=== PATIENT | male | born 1940 | race Caucasian/White ===

== ENCOUNTER 2025-01-04 15:50 | Inpatient (IN) | payer OTHER ==
[~2025-01-04] VITALS: Ht 175.3 cm; Wt 68.9 kg
[2025-01-04 16:38] VITALS: PULSE 65; RESP 22; O2SAT 98
--- NOTE | 2025-01-04 17:05 | DVH ---
CHEST RADIOGRAPH Indication: gen weak Technique: Single frontal view of the chest was obtained COMPARISON: None FINDINGS: Lines and Tubes: Left chest wall pacemaker Lungs: Mild congestion Pleura: Small left pleural effusion No pneumothorax. Cardiomediastinal contours: Cardiomegaly Bones: Unremarkable IMPRESSION: Mild fluid overload
[2025-01-04] MEDS: cefTRIAXone 2GM/50ML D5W 50 ML IV ONE (17:12)
[2025-01-04 17:18] LABS: Urine Bacteria FEW /hpf (None Seen); Urine Blood 1+ /uL (Negative); Urine Budding Yeast FEW /hpf (None Seen); Urine Clarity Ex.Turbid (Clear); Urine Color Light-Brown (Yellow); Urine Protein, UAD 1+ (Negative); Urine Specific Gravity 1.015 (1.001-1.035); Urine Squamous Epithelial Cell None Seen /hpf (<5); Urine Urobilinogen Normal (Negative); Urine WBC 1596 /HPF (0-3); Urine WBC Clumps PRESENT /hpf (None Seen); Urine pH 6.5 (5.0-9.0)
--- NOTE | 2025-01-04 17:25 | ED.PDOC ---
History of Present Illness HPI Comments 84Y M with PMHx HTN, BPH, and possibly DM presents to ED for chief complaint general weakness x2days. Pt states he was discharged from SNF last week and has been unable to care for himself. Pt states he is unable to ambulate. Pt denies all pain but presents with bruising to left dorsal hand. Pt states he recently had a fall. Pt denies chest pain, SOB, and all urinary symptoms. No other symptoms reported. Chief Complaint: General Weakness Time Seen by MD: 16:55 Reviewed Notes: Nurses Notes, Women'S Studies Lecturer Notes, Medications, Allergies Allergies: Coded Allergies: NO KNOWN ALLERGIES (Unverified , 01/04/25) Information Source: Patient, Emergency Med Personnel Mode of Arrival: EMS Severity: Moderate Timing: Days Duration: Since onset Prehospital treatment: None Past Medical History PAST MEDICAL HISTORY: DM, HTN Surgical History: Denies all surgeries Family History Family History: Unknown Social History Smoker: Non-Smoker Alcohol: Denies ETOH Use Drugs: Denies Drug Use Lives In: Home Constitutional: reports: weakness; denies: chills, diaphoresis, fatigue, fever, malaise, sweats, others EENTM: denies: blurred vision, double vision, ear bleeding, ear discharge, ear drainage, ear pain, ear ringing, eye pain, eye redness, hearing loss, mouth pain, mouth swelling, nasal discharge, nose bleeding, nose congestion, nose pain, photophobia, tearing, throat pain, throat swelling, voice changes, others Respiratory: denies: cough, hemoptysis, orthopnea, SOB at rest, shortness of breath, SOB with excertion, stridor, wheezing, others Cardiovascular: denies: chest pain, dizzy spells, diaphoresis, Dyspnea on exertion, edema, irregular heart beat, left arm pain, lightheadedness, palpitations, PND, syncope, others Gastrointestinal: denies: abdomen distended, abdominal pain, blood streaked bowels, constipated, diarrhea, dysphagia, difficulty swallowing, hematemesis, melena, nausea, poor appetite, poor fluid intake, rectal bleeding, rectal pain, vomiting, others Genitourinary: denies: burning, dysuria, flank pain, frequency, hematuria, inc ontinence, penile discharge, penile sore, pain, testicle pain, testicle swelling, urgency, others Neurological: denies: dizziness, fainting, headache, left sided numbness, left sided weakness, numbness, paresthesia, pre-existing deficit, right sided numbness, right sided weakness, seizure, speech problems, tingling, tremors, weakness, others Musculoskeletal: denies: back pain, gout, joint pain, joint swelling, muscle pain, muscle stiffness, neck pain, others Integumetry: reports: bruises (lt dorsal hand); denies: change in color, change in hair/nails, dryness, laceration, lesions, lumps, rash, wounds, others Allergic/Immunocompromised: denies: Difficulty Healing, Frequent Infections, Hives, Itching, others Hematologic/Lymphatic: denies: anemia, blood clots, easy bleeding, easy bruising, swollen glands, others Endocrine: denies: excessive hunger, excessive sweating, excessive thirst, excessive urination, flushing, intolerance to cold, intolerance to heat, unexplained weight gain, unexplained weight loss, others Psychiatric: denies: anxiety, bipolar disorder, depression, hopeless, panic dis order, schizophrenia, sleepless, suicidal, others All Other Systems: Reviewed and Negative Physical Exam General Appearance: No Apparent Distress HEENT: Other (Pupils symmetric. Moist mucous membranes) Neck: Full Range of Motion, Normal Inspection Respiratory: Lungs Clear, No Accessory Muscle Use, No Respiratory Distress, Normal Breath Sounds Cardiovascular: No Edema, No JVD, Regular Rate/Rhythm Breast Exam: Deferred Gastrointestinal: Non Tender, Soft Genitalia: Other (Cloudy/purulent urine in Simms catheter) Pelvic: Deferred Rectal: Deferred Extremities: Normal range of motion, No pedal edema, Tender, Other (Soft tissue tenderness and bruising on the dorsum of the left hand) Neurologic: Alert, Normal Affect, Normal Mood, Other (Moves all extremities. No gross focal deficit.) Cerebellar Function: NOT DONE Reflexes: NOT DONE Skin: Dry, Normal Color, Warm Lymphatic: NOT DONE Was a procedure done? Was a procedure done?: No Differential Dx Considerations may include: UTI, electrolyte imbalance, dehydration/hypovolemia, sepsis, pneumonia, hand contusion/fracture/dislocation, arrhythmia, NC, among others X-Ray, Labs, Meds, VS Vital Signs Date Time Temp Pulse Resp B/P (MAP) Pulse Ox O2 Delivery O2 Flow Rate FiO2 01/04/25 22:00 65 17 100/49 (66) 98 01/04/25 20:30 63 18 98 Nasal Cannula* 2 28 01/04/25 20:00 65 01/04/25 20:00 98.0 65 17 96/50 (65) 100 98.0 01/04/25 18:00 65 16 93/44 (60) 98 01/04/25 16:38 65 22 98 Nasal Cannula* 2 28 01/04/25 16:37 97.8 65 19 101/51 (68) 98 97.8 01/04/25 16:24 97.8 86 18 98/68 (78) 94 01/04/25 15:50 74 Lab Test 01/04/25 19:38 01/04/25 18:29 01/04/25 16:33 Range/Units Troponin I High Sensitivity 3 L 3 L </=54 ng/L White Blood Count 10.0 4.4-10.8 10^3/uL Red Blood Count 4.38 L 4.5-5.90 10^6/uL Hemoglobin 13.9 13.5-17.5 g/dL Hematocrit 41.2 41.0-53.0 % Mean Corpuscular Volume 94.0 80.0-100.0 fL Mean Corpuscular Hemoglobin 31.7 28.0-32.0 pg Mean Corpuscular Hemoglobin Concent 33.7 32.0-36.0 g/dL Red Cell Distribution Width 14.0 11.8-14.3 % Platelet Count 147 140-450 10^3/uL Mean Platelet Volume 7.6 6.9-10.8 fL Neutrophils (%) (Auto) 74.6 37.0-80.0 % Lymphocytes (%) (Auto) 14.3 10.0-50.0 % Monocytes (%) (Auto) 8.9 0.0-12.0 % Eosinophils (%) (Auto) 1.9 0.0-7.0 % Basophils (%) (Auto) 0.3 0.0-2.0 % Neutrophils # (Auto) 7.5 1.6-8.6 10 ^3/uL Lymphocytes # (Auto) 1.4 0.4-5.4 10 ^3/uL Monocytes # (Auto) 0.9 0-1.3 10 ^3/uL Eosinophils # (Auto) 0.2 0-0.8 10 ^3/uL Basophils # (Auto) 0 0-0.2 10 ^3/uL Nucleated Red Blood Cells 0.1 % Sodium Level 137 136-145 mmol/L Potassium Level 4.3 3.5-5.1 mmol/L Chloride Level 104 98-107 mmol/L Carbon Dioxide Level 25 20-31 mmol/L Anion Gap 8 5-15 Blood Urea Nitrogen 36 H 9-23 mg/dL Creatinine 1.49 H 0.700-1.30 mg/dL Glomerular Filtration Rate Calc 45 >90 mL/min BUN/Creatinine Ratio 24.2 H 10.0-20.0 Serum Glucose 145 H 74-106 mg/dL Lactic Acid Level 1.5 0.4-2.0 mmol/L Calcium Level 9.4 8.7-10.4 mg/dL Total Bilirubin 0.5 0.2-1.0 mg/dL Aspartate Amino Transferase (AST) 9 L 13-40 U/L Alanine Aminotransferase (ALT) 16 7-40 U/L Alkaline Phosphatase 124 H 46-116 U/L B-Type Natriuretic Peptide 51.42 0-100 pg/mL Total Protein 6.0 5.7-8.2 g/dL Albumin 3.6 3.2-4.8 g/dL Urine Color Light-brown Yellow Urine Clarity Ex.turbid Clear Urine pH 6.5 5.0-9.0 Urine Specific [place] 1.015 1.001-1.035 Urine Protein 1+ H Negative Urine Ketones Negative Negative Urine Blood 1+ H Negative /uL Urine Nitrite Negative Negative Urine Bilirubin Negative Negative Urine Urobilinogen Normal Negative mg/dL Urine Leukocyte Esterase 3+ Negative /uL Urine RBC 34 0 - 3 /hpf Urine WBC Clumps Present None Seen /hpf Urine Microscopic WBC 1596 H 0-3 /HPF Urine Squamous Epithelial Cells None seen <5 /hpf Urine Bacteria Few H None Seen /hpf Urine Yeast (Budding) Few None Seen /hpf Urine Glucose 4+ H Normal mg/dL Current Medications Medications (Trade) Dose Ordered Sig/Willem Route Start Time Stop Time Status Last Admin Ceftriaxone Sodium/Dextrose 50 ml @ 50 mls/hr ONCE ONCE IV 01/04/25 17:15 01/04/25 18:14 DC 01/04/25 17:12 Diagnostic Test (Pha) (Accu-Chek Comfort Curve T) 1 strip ACHS 01/04/25 22:00 01/04/25 22:00 Sodium Chloride 1,000 ml @ 60 mls/hr [id number] IV 01/04/25 22:00 01/04/25 23:04 ORDERING PHYSICIAN: JUDD MORALES MD PROCEDURE(s): CXRP - CHEST PORTABLE REASON: gen weak ORDER NUMBER(s): [id number], ACCESSION NUMBER(s): [id number] CHEST RADIOGRAPH Indication: gen weak Technique: Single frontal view of the chest was obtained COMPARISON: None FINDINGS: Lines and Tubes: Left chest wall pacemaker Lungs: Mild congestion Pleura: Small left pleural effusion No pneumothorax. Cardiomediastinal contours: Cardiomegaly Bones: Unremarkable IMPRESSION: Mild fluid overload RING PHYSICIAN: JUDD MORALES MD PROCEDURE(s): LHAN - L HAND 3V XRAY REASON: trauma ORDER NUMBER(s): [id number], ACCESSION NUMBER(s): [id number] CLINICAL INDICATION: trauma TECHNIQUE: XY L HAND 3V XRAY Comparison: None FINDINGS/IMPRESSION: : There is no evidence of acute fracture or dislocation. Soft tissues are unremarkable. X-Ray, Labs, Meds, VS Comment 84Y M with PMHx HTN, BPH, and possibly DM presents to ED for chief complaint general weakness x2days. Vitals remarkable for BP 101/51 Exam remarkable for cloudy/purulent urine in the Simms and collection bag, soft tissue tenderness and bruising on the dorsum of the left hand Rhythm strip independently interpreted by me: Sinus rhythm, rate 65, no ectopy. Chest x-ray IMPRESSION: Mild fluid overload Left hand x-ray FINDINGS/IMPRESSION: : There is no evidence of acute fracture or dislocation. Soft tissues are unremarkable. CBC unremarkable, metabolic panel remarkable for BUN 36, creatinine 1.69, lactate normal, 2 serial troponins negative, BNP normal, UA abnormal consistent with UTI Patient treated with the following in the ED: Rocephin 1 g IV On re-evaluation, patient is resting comfortably with stable vitals. Plan is to admit the patient for IV antibiotics. Time of 1ST Reevaluation: 17:25 Reevaluation 1ST: Unchanged Patient Education/Counseling: Diagnosis, Treatment Family Education/Counseling: No Family Present Departure 1 Departure Time of Disposition: 19:00 Impression: Primary Impression: Generalized weakness Additional Impression: UTI (urinary tract infection) Qualified Codes: N39.0 - Urinary tract infection, site not specified Disposition: ADMITTED INPATIENT Admit to: Tele Condition: Guarded Critical Care Note Critical Care Time?: No Stability Stability form required: No Heart Score Heart Score: Heart Score Response (Comments) Value History N/A 0 EKG N/A 0 Age N/A 0 Risk Factors N/A 0 Troponin N/A 0 Total 0 I personally scribed for JUDD MORALES MD [facility] on 01/04/25 at 17:25. Electronically submitted by Yashira eGe ([facility]). I personally scribed for JUDD MORALES MD ([place]) on 01/04/25 at 17:29. Electronically submitted by Yashira Gee ([facility]). I personally scribed for JUDD MORALES MD ([email or web address]) on 01/04/25 at 19:19. Electronically submitted by Yashira Gee ([facility]). JUDD MORALES MD Jan 04, 2025 17:25
--- NOTE | 2025-01-04 18:16 | DVH ---
CLINICAL INDICATION: trauma TECHNIQUE: XY L HAND 3V XRAY Comparison: None FINDINGS/IMPRESSION: : There is no evidence of acute fracture or dislocation. Soft tissues are unremarkable.
[2025-01-04 18:53] LABS: Basophils # (auto) 0 10 ^3/uL (0-0.2); Basophils % (auto) 0.3 % (0.0-2.0); Eosinophils # (auto) 0.2 10 ^3/uL (0-0.8); Eosinophils % (auto) 1.9 % (0.0-7.0); Hematocrit 41.2 % (41.0-53.0); Hemoglobin 13.9 g/dL (13.5-17.5); Lymphocytes # (auto) 1.4 10 ^3/uL (0.4-5.4); Lymphocytes % (auto) 14.3 % (10.0-50.0); Mean Corpuscular Hemoglobin 31.7 pg (28.0-32.0); Mean Corpuscular Hgb Conc. 33.7 g/dL (32.0-36.0); Monocytes # (auto) 0.9 10 ^3/uL (0-1.3); Monocytes % (auto) 8.9 % (0.0-12.0); Neutrophils # (auto) 7.5 10 ^3/uL (1.6-8.6); Neutrophils % (auto) 74.6 % (37.0-80.0); Nucleated Red Blood Cells % 0.1 %; Platelet Count (auto) 147 10^3/uL (140-450); Red Blood Cells 4.38 10^6/uL (4.5-5.90)
[2025-01-04 19:10] LABS: Alanine Aminotransferase 16 U/L (7-40); Albumin 3.6 g/dL (3.2-4.8); Anion Gap 8 (5-15); BUN/Creatinine Ratio 24.2 (10.0-20.0); Bilirubin, Total 0.5 mg/dL (0.2-1.0); Calcium 9.4 mg/dL (8.7-10.4); Carbon Dioxide 25 mmol/L (20-31); Chloride 104 mmol/L (98-107); Potassium 4.3 mmol/L (3.5-5.1); Sodium 137 mmol/L (136-145)
[2025-01-04 19:15] LABS: Alkaline Phosphatase 124 U/L (46-116); Aspartate Aminotransferase 9 U/L (13-40); Blood Urea Nitrogen 36 mg/dL (9-23); Glucose 145 mg/dL (74-106)
[2025-01-04 20:30] VITALS: PULSE 63; RESP 18; O2SAT 98
[2025-01-04] MEDS ORDERED: ONDANSETRON HCL 4 MG/2 ML VIAL IV PRN (22:00)
[2025-01-04] MEDS: InsuLIN REG 1unit/0.01ml Soln (100units/ml) SC SCH (22:00)
[2025-01-04] MEDS ORDERED: DEXTROSE (50%) 50ML SYRG IV PRN (22:00)
[2025-01-04] MEDS: ACCU-CHEK COMFORT CURVE STRIP VI SCH (22:00)
[2025-01-04] MEDS ORDERED: NITROGLYCERIN 0.4 MG SL TAB SL PRN (22:00)
[2025-01-04] MEDS ORDERED: MORPHINE SULFATE INJ 2 MG/ml SYRG IV PRN (22:00)
[2025-01-04] MEDS ORDERED: DOCUSATE SOD 100 MG CAP PO PRN (22:00)
--- NOTE | 2025-01-04 22:04 | DVHHP2 ---
History of Present Illness Reason for Visit: Generalized weakness History of Present Illness The patient is a 84-year-old male with past medical history of DM, HLD, and hypertension who presented to [facility] ED with complaint of generalized weakness for the past 2 days. Patient reports he was discharged from SNF last week and has been unable to care for himself, unable to ambulate. Patient present with bruises to the left dorsal hand from recent fall. Patient was seen and evaluated in the ED, laboratory data shows WBC 10.0, platelets 147, sodium 137, potassium 4.3, BUN 36, creatinine 1.49, GFR 45, troponin 3, glucose 145, BNP 51.42, urinalysis positive for urinary tract infection, blood pressure 96/50, heart rate 65, temperature 98.0 F, O2 saturation 99% on oxygen. Left hand x-ray show no evidence of acute fracture or dislocation. Patient was started on IV antibiotic regimen Rocephin, please see medication orders section in the computer. On my assessment, patient denied chest pain, no headache, no dizziness, abdominal pain, no nausea, no vomiting, no fever, no chills. Patient was admitted for further evaluation and medical management. Past Medical History DM, HTN, HLD Past Surgical History Denies all surgeries Family History Reviewed, noncontributory to the management of this case. Past Social History The patient lives at home, denies smoking, alcohol or illicit drugs abuse. Review of Systems Constitutional: Yes: Weakness; No: Fever, Chills, Sweats, Malaise, Other Eyes: No: Pain, Vision change, Conjunctivae inflammation, Eyelid inflammation, Other, Redness ENT: No: Ear pain, Ear discharge, Nose pain, Nose discharge, Nose congestion, Mouth pain, Mouth swelling, Throat pain, Throat swelling, Other Respiratory: No: Cough, Dry, Shortness of breath, SOB with excertion, Wheezing, Hemoptysis, Pleuritic Pain, Sputum, Wheezing, Other Cardiovascular: No: Chest Pain, Palpitations, Orthopnea, Paroxysmal Noc. Dyspnea, Edema, Lt Headedness, Other Gastrointestinal: No: Nausea, Vomiting, Abdominal Pain, Diarrhea, Constipation, Melena, Hematochezia, Other Genitourinary: No Dysuria, No Frequency, No Incontinence, No Hematuria, No Retention, No Other Musculoskeletal: No: other, neck pain, shoulder pain, arm pain, back pain, hand pain, leg pain, foot pain Skin: Other (Left hand bruises); No: Rash, Lesions, Jaundice, Bruising Neurological: No: Weakness, Numbness, Incoordination, Change in speech, Confusion, Seizures, Other Allergies: Coded Allergies: NO KNOWN ALLERGIES (Unverified , 01/04/25) Exam Vital Signs Vital Signs Date Time Temp Pulse Resp B/P (MAP) Pulse Ox O2 Delivery O2 Flow Rate FiO2 01/04/25 20:00 65 01/04/25 20:00 98.0 17 96/50 (65) 100 98.0 01/04/25 16:38 Nasal Cannula* 2 28 General Appearance: Alert, Oriented X3, Cooperative, No acute distress HEENT: Atraumatic, PERRLA, EOMI, Mucous membr. moist/pink Respiratory: Clear to auscultation, Normal air movement Cardiovascular: Regular rate, Normal S1, Normal S2, No murmurs Abdominal: Normal bowel sounds, Soft, No tenderness, No hepatospenomegaly, No masses Extremities: No clubbing, No cyanosis, No edema, Normal pulses, No tenderness/swelling Skin: No rashes, No breakdown, No significant lesion Neuro: Normal speech, Normal tone, Sensation intact, Cranial nerves 3-12 NL, Reflexes 2+, Other (Generalized weakness) Psych/Mental Status: Mental status NL, Mood NL Labs/Xrays Labs Test 01/04/25 19:38 01/04/25 18:29 01/04/25 16:33 Range/Units Troponin I High Sensitivity 3 L </=54 ng/L White Blood Count 10.0 4.4-10.8 10^3/uL Red Blood Count 4.38 L 4.5-5.90 10^6/uL Hemoglobin 13.9 13.5-17.5 g/dL Hematocrit 41.2 41.0-53.0 % Mean Corpuscular Volume 94.0 80.0-100.0 fL Mean Corpuscular Hemoglobin 31.7 28.0-32.0 pg Mean Corpuscular Hemoglobin Concent 33.7 32.0-36.0 g/dL Red Cell Distribution Width 14.0 11.8-14.3 % Platelet Count 147 140-450 10^3/uL Mean Platelet Volume 7.6 6.9-10.8 fL Neutrophils (%) (Auto) 74.6 37.0-80.0 % Lymphocytes (%) (Auto) 14.3 10.0-50.0 % Monocytes (%) (Auto) 8.9 0.0-12.0 % Eosinophils (%) (Auto) 1.9 0.0-7.0 % Basophils (%) (Auto) 0.3 0.0-2.0 % Neutrophils # (Auto) 7.5 1.6-8.6 10 ^3/uL Lymphocytes # (Auto) 1.4 0.4-5.4 10 ^3/uL Monocytes # (Auto) 0.9 0-1.3 10 ^3/uL Eosinophils # (Auto) 0.2 0-0.8 10 ^3/uL Basophils # (Auto) 0 0-0.2 10 ^3/uL Nucleated Red Blood Cells 0.1 % Sodium Level 137 136-145 mmol/L Potassium Level 4.3 3.5-5.1 mmol/L Chloride Level 104 98-107 mmol/L Carbon Dioxide Level 25 20-31 mmol/L Anion Gap 8 5-15 Blood Urea Nitrogen 36 H 9-23 mg/dL Creatinine 1.49 H 0.700-1.30 mg/dL Glomerular Filtration Rate Calc 45 >90 mL/min BUN/Creatinine Ratio 24.2 H 10.0-20.0 Serum Glucose 145 H 74-106 mg/dL Lactic Acid Level 1.5 0.4-2.0 mmol/L Calcium Level 9.4 8.7-10.4 mg/dL Total Bilirubin 0.5 0.2-1.0 mg/dL Aspartate Amino Transferase (AST) 9 L 13-40 U/L Alanine Aminotransferase (ALT) 16 7-40 U/L Alkaline Phosphatase 124 H 46-116 U/L B-Type Natriuretic Peptide 51.42 0-100 pg/mL Total Protein 6.0 5.7-8.2 g/dL Albumin 3.6 3.2-4.8 g/dL Urine Color Light-brown Yellow Urine Clarity Ex.turbid Clear Urine pH 6.5 5.0-9.0 Urine Specific [place] 1.015 1.001-1.035 Urine Protein 1+ H Negative Urine Ketones Negative Negative Urine Blood 1+ H Negative /uL Urine Nitrite Negative Negative Urine Bilirubin Negative Negative Urine Urobilinogen Normal Negative mg/dL Urine Leukocyte Esterase 3+ Negative /uL Urine RBC 34 0 - 3 /hpf Urine WBC Clumps Present None Seen /hpf Urine Microscopic WBC 1596 H 0-3 /HPF Urine Squamous Epithelial Cells None seen <5 /hpf Urine Bacteria Few H None Seen /hpf Urine Yeast (Budding) Few None Seen /hpf Urine Glucose 4+ H Normal mg/dL PATIENT: KEESHA MONK ACCT: [id number] UNIT: [id number] : 1940 LOC: ER ROOM / BED: / AGE / SEX: 84 / M ADM STATUS: REG ER SERVICE 1619 ORDERING PHYSICIAN: JUDD MORALES MD PROCEDURE(s): CXRP - CHEST PORTABLE REASON: gen weak ORDER NUMBER(s): [id number], ACCESSION NUMBER(s): [id number] CHEST RADIOGRAPH Indication: gen weak Technique: Single frontal view of the chest was obtained COMPARISON: None FINDINGS: Lines and Tubes: Left chest wall pacemaker Lungs: Mild congestion Pleura: Small left pleural effusion No pneumothorax. Cardiomediastinal contours: Cardiomegaly Bones: Unremarkable IMPRESSION: Mild fluid overload ORDERING PHYSICIAN: JUDD MORALES MD PROCEDURE(s): LHAN - L HAND 3V XRAY REASON: trauma ORDER NUMBER(s): [id number], ACCESSION NUMBER(s): [id number] CLINICAL INDICATION: trauma TECHNIQUE: XY L HAND 3V XRAY Comparison: None FINDINGS/IMPRESSION: There is no evidence of acute fracture or dislocation. Soft tissues are unremarkable. Assessment/Plan Assessment/Plan Generalized weakness Acute renal injury Urinary tract infection Diabetes mellitus with hyperglycemia Plan 1. Admit to telemetry unit 2. Breathing treatment 3. Pain control management 4. IV antibiotic management 5. Management of fluids and electrolytes 6. Consultation for hospitalist 7. Diagnostic test chest x-ray 8. DVT prophylaxis-on SCDs 9. Repeat labs CBC, CMP in a.m. 10. Home medication reviewed and reconciled 11. Continue with current medical management 12. Treatment plan discussed with patient and RN. Patient verbalized understanding. Plan discussed with: Patient, Other (RN) Problem List: (1) Generalized weakness (2) Acute renal injury (3) UTI (urinary tract infection) (4) Diabetes mellitus with hyperglycemia Date of Service: Jan 04, 2025 Billing Provider: SHAZIA PHELPS DNP Common Visit Codes: [id number] INP/OBS CARE (HIGH) SHAZIA PHELPS DNP Jan 04, 2025 22:04
[2025-01-04] MEDS: SODIUM CHLORIDE 0.9% 1,000 ML IV SCH (23:04)
[2025-01-05 06:43] LABS: Alanine Aminotransferase 14 U/L (7-40); Alkaline Phosphatase 103 U/L (46-116); Anion Gap 8 (5-15); Aspartate Aminotransferase 14 U/L (13-40); BUN/Creatinine Ratio 22.7 (10.0-20.0); Calcium 9.7 mg/dL (8.7-10.4); Carbon Dioxide 25 mmol/L (20-31); Chloride 106 mmol/L (98-107); Glucose 102 mg/dL (74-106); Potassium 4.2 mmol/L (3.5-5.1); Sodium 139 mmol/L (136-145); Total Protein 5.8 g/dL (5.7-8.2)
[2025-01-05 06:44] LABS: Albumin 3.3 g/dL (3.2-4.8); Bilirubin, Total 0.6 mg/dL (0.2-1.0)
[2025-01-05 06:54] LABS: Blood Urea Nitrogen 25 mg/dL (9-23)
[2025-01-05 07:01] LABS: Basophils # (auto) 0 10 ^3/uL (0-0.2); Basophils % (auto) 0.8 % (0.0-2.0); Eosinophils # (auto) 0.2 10 ^3/uL (0-0.8); Eosinophils % (auto) 3.8 % (0.0-7.0); Hematocrit 36.5 % (41.0-53.0); Hemoglobin 12.2 g/dL (13.5-17.5); Lymphocytes # (auto) 1.4 10 ^3/uL (0.4-5.4); Lymphocytes % (auto) 22.2 % (10.0-50.0); Mean Corpuscular Hemoglobin 31.3 pg (28.0-32.0); Mean Corpuscular Hgb Conc. 33.5 g/dL (32.0-36.0); Mean Corpuscular Volume 93.6 fL (80.0-100.0); Monocytes # (auto) 0.6 10 ^3/uL (0-1.3); Monocytes % (auto) 9.5 % (0.0-12.0); Neutrophils % (auto) 63.7 % (37.0-80.0); Nucleated Red Blood Cells % 0.2 %; Platelet Count (auto) 127 10^3/uL (140-450); Red Cell Distribution Width 14.1 % (11.8-14.3); White Blood Cell 6.2 10^3/uL (4.4-10.8)
[2025-01-05 07:38] VITALS: RESP 18
[2025-01-05] MEDS: cefTRIAXone 1GM/50ML D5W 50 ML IV SCH (08:12)
--- NOTE | 2025-01-05 13:21 | DVHPN2 ---
Reviewed: Care Plan, H&P, Labs, Medications, Previous Orders, Radiology Changes from previous H/P or p: No Changes Eyes: No Pain, No Vision change, No Conjunctivae inflammation, No Eyelid inflammation, No Other, No Redness ENT: No Ear pain, No Ear discharge, No Nose pain, No Nose discharge, No Nose congestion, No Mouth pain, No Mouth swelling, No Throat pain, No Throat swelling, No Other Cardiovascular: No Chest Pain, No Palpitations, No Orthopnea, No Paroxysmal Noc. Dyspnea, No Edema, No Lt Headedness, No Other Respiratory: No Cough, No Dry, No Shortness of breath, No SOB with excertion, No Wheezing, No Hemoptysis, No Pleuritic Pain, No Sputum, No Other Gastrointestinal: No Nausea, No Vomiting, No Abdominal Pain, No Diarrhea, No Constipation, No Melena, No Hematochezia, No Other Genitourinary: No Dysuria, No Frequency, No Incontinence, No Hematuria, No Retention, No Other Musculoskeletal: No other, No neck pain, No shoulder pain, No arm pain, No back pain, No hand pain, No leg pain, No foot pain Skin: No Rash, No Lesions, No Jaundice, No Bruising; Other (Left hand bruises) Objective Vitals Vital Signs Date Time Temp Pulse Resp B/P (MAP) Pulse Ox O2 Delivery O2 Flow Rate FiO2 01/05/25 12:00 97.9 65 15 109/56 (73) 99 97.9 01/05/25 07:38 Nasal Cannula* 2 28 Intake/Output Intake and Output 01/05/25 07:00 Intake Total 410 ml Balance 410 ml Intake IV Total 410 ml Medications Current Medications Medications Dose Ordered Sig/Willem Route Start Time Stop Time Status Last Admin Dose Admin Ceftriaxone Sodium 50 ml @ 100 mls/hr DAILY@09 IV 01/05/25 09:00 01/05/25 08:12 100 MLS/HR Diagnostic Test (Pha) 1 strip ACHS 01/04/25 22:00 01/05/25 11:10 1 STRIP Insulin Human Regular ACHS SC 01/04/25 22:00 Dextrose 50 ml UD PRN IV 01/04/25 22:00 Sodium Chloride 1,000 ml @ 60 mls/hr [id number] IV 01/04/25 22:00 01/04/25 23:04 60 MLS/HR Acetaminophen/ Hydrocodone Bitart 1 tab Q4HP PRN PO 01/04/25 22:00 Ondansetron HCl 4 mg Q4HP PRN IV 01/04/25 22:00 Docusate Sodium 100 mg BIDPRN PRN PO 01/04/25 22:00 Acetaminophen 650 mg Q6HP PRN PO 01/04/25 22:00 Nitroglycerin 0.4 mg Q5MINP PRN SL 01/04/25 22:00 Morphine Sulfate 2 mg Q30M PRN IV 01/04/25 22:00 Laboratory Results Laboratory Tests 01/05/25 05:51 Chemistry Test 01/04/25 18:29 01/05/25 05:51 Albumin 3.6 g/dL (3.2-4.8) 3.3 g/dL (3.2-4.8) Calcium Level 9.4 mg/dL (8.7-10.4) 9.7 mg/dL (8.7-10.4) Total Protein 6.0 g/dL (5.7-8.2) 5.8 g/dL (5.7-8.2) Cardiac Markers Test 01/04/25 18:29 B-Type Natriuretic Peptide 51.42 pg/mL (0-100) LFT Test 01/04/25 18:29 01/05/25 05:51 Alanine Aminotransferase (ALT) 16 U/L (7-40) 14 U/L (7-40) Alkaline Phosphatase 124 U/L (46-116) H 103 U/L (46-116) Aspartate Amino Transferase (AST) 9 U/L (13-40) L 14 U/L (13-40) Total Bilirubin 0.5 mg/dL (0.2-1.0) 0.6 mg/dL (0.2-1.0) Urinalysis Test 01/04/25 16:33 Urine Color Light-brown (Yellow) Urine Clarity Ex.turbid (Clear) Urine pH 6.5 (5.0-9.0) Urine Specific [place] 1.015 (1.001-1.035) Urine Protein 1+ (Negative) H Urine Ketones Negative (Negative) Urine Blood 1+ /uL (Negative) H Urine Nitrite Negative (Negative) Urine Bilirubin Negative (Negative) Urine Urobilinogen Normal mg/dL (Negative) Urine Leukocyte Esterase 3+ /uL (Negative) Urine RBC 34 /hpf (0 - 3) Urine WBC Clumps Present /hpf (None Seen) Urine Microscopic WBC 1596 /HPF (0-3) H Urine Squamous Epithelial Cells None seen /hpf (<5) Urine Bacteria Few /hpf (None Seen) H Urine Yeast (Budding) Few /hpf (None Seen) Urine Glucose 4+ mg/dL (Normal) H Labs and/or images reviewed: Labs reviewed by me, Image(s) reviewed by me Assessment/Plan Assessment/Plan Sepsis secondary to urinary tract infection: Blood cultures urine cultures Acute urinary tract infection: Rocephin IV Acute generalized weakness possibly secondary to sepsis Diabetes: Insulin sliding scale Hypertension Hypercholesterolemia Chest x-ray negative Bruise left hand secondary to fall: Left hand x-ray negative Time spent 55 minutes Advanced care planning time 20 minutes Patient is full code Vandana test rapid flu test D-dimer ordered Plan discussed with: Patient Date of Service: Jan 05, 2025 Billing Provider: FAUSTINO SIBLEY MD Common Visit Codes: [id number] INP/OBS CARE(HIGH) Secondary Visit Codes: [id number] CARE PLAN 30 MINUTES FAUSTINO SIBLEY MD Jan 05, 2025 13:21
[2025-01-05 14:51] LABS: COVID19 ANTIGEN SOFIA FIA NEGATIVE (NEGATIVE); Rapid Influenza A Negative (Negative); Rapid Influenza B Negative (Negative)
--- NOTE | 2025-01-05 16:23 | DVH ---
Bilateral lower extremity venous duplex Clinical History: R/O DVT Comparison: None Technique: Duplex Doppler evaluation of the deep venous systems of both lower extremities from the common femora l veins to the popliteal veins including color Doppler and spectral/pulsed waveform analysis was perf ormed. Findings: RIGHT SIDE: The common femoral vein demonstrates appropriate compressibility and waveform variability. There is compressibility/patency of the great saphenous vein at the proximal thigh. The femoral vein demonstrates appropriate compressibility and waveform variability. The deep femoral vein demonstrates appropriate compressibility and waveform variability. The popliteal vein demonstrates appropriate compressibility and waveform variability. There is normal compressibility at the tibioperoneal trunk. LEFT SIDE: The common femoral vein demonstrates appropriate compressibility and waveform variability. There is compressibility/patency of the great saphenous vein at the proximal thigh. The femoral vein demonstrates appropriate compressibility and waveform variability. The deep femoral vein demonstrates appropriate compressibility and waveform variability. The popliteal vein demonstrates appropriate compressibility and waveform variability. There is normal compressibility at the tibioperoneal trunk. Impression: No right or left femoropopliteal venous thrombosis.
[2025-01-05 18:27] VITALS: BP 115/61; PULSE 65; RESP 16; TEMP 97.4; O2SAT 100
[2025-01-05 18:30] VITALS: RESP 18
[2025-01-05 20:00] VITALS: PULSE 65
[2025-01-05 21:00] VITALS: BP 112/57; PULSE 64; RESP 16; TEMP 97.6; O2SAT 100
[2025-01-05] MEDS ORDERED: VANCOMYCIN PER PHARMACY 0 MG IV SCH (23:45)
[2025-01-05] MEDS: VANCOMYCIN 1GM/250ML KIT 250 ML IV ONE (23:56)
[2025-01-05] MEDS: VANCOMYCIN HCL 1000 MG VL ONE (23:59)
[2025-01-06] VITALS (8 sets, daily range): BP systolic 96–121; BP diastolic 49–61; PULSE 64–67; RESP 16–17; TEMP 97.6–98.1; O2SAT 99–100
[2025-01-06] MEDS: IOHEXOL 350 MG/ML 100ML IJ ONE (09:07)
--- NOTE | 2025-01-06 09:38 | DVH ---
CTA CHEST INDICATION: R/O PE TECHNIQUE: Multidetector CTA of the chest was performed of the chest with 100 cc of intravenous contr ast. PULMONARY ANGIOGRAPHY PROTOCOL was utilized using a bolus-tracking technique centered on the jennifer n pulmonary artery. Axial, coronal and sagittal multiplanar and MIP reformats were performed. Radiation Dose Information: CT Dose: CTDI volume is 16 mGy. Dose-length product is 538 mGy*cm The dose indicators for CT are the volume Computed Tomography (CT) Dose Index (CTDIvol) and the Dose Length Product (DLP), and are measured in units of mGy and mGy-cm, respectively. These indicators are not patient dose, but values generated from the CT scanner acquisition factors. The report includes radiation exposure data for exposures received during this examination. Comparison: None Findings: Pulmonary artery: There is no evidence of a pulmonary arterial filling defect to suggest pulmonary e mbolism. The main pulmonary artery demonstrates normal caliber. Lungs/Pleura: There is pleural-parenchymal scarring / thickening with volume loss in the lung bases. There is no focal lung consolidation. There is no suspicious appearing pulmonary nodule or mass. Ther e is no significant pleural effusion. There is no evidence of pneumothorax. Heart/Vascular Structures: Normal heart size. The thoracic aorta demonstrates normal caliber. There is no evidence of pericardial effusion. Lymph Nodes: There is no evidence of thoracic lymphadenopathy. Musculoskeletal: The osseous structures appear demineralized. There are chronic appearing compression deformities of the T11 greater than T12 vertebral bodies. Upper abdomen: Visualized upper abdominal structures appear within normal limits. IMPRESSION: 1. There is no evidence of a pulmonary arterial filling defect to suggest pulmonary embolism. 2. There is pleural-parenchymal scarring/ thickening with volume loss in the lung bases. 3. Chronic appearing deformities of the T11 greater than T12 vertebral bodies. HS:Y
--- NOTE | 2025-01-06 12:12 | DVHPN2 ---
Reviewed: Care Plan, H&P, Labs, Medications, Previous Orders, Radiology Changes from previous H/P or p: No Changes Eyes: No Pain, No Vision change, No Conjunctivae inflammation, No Eyelid inflammation, No Other, No Redness ENT: No Ear pain, No Ear discharge, No Nose pain, No Nose discharge, No Nose congestion, No Mouth pain, No Mouth swelling, No Throat pain, No Throat swelling, No Other Cardiovascular: No Chest Pain, No Palpitations, No Orthopnea, No Paroxysmal Noc. Dyspnea, No Edema, No Lt Headedness, No Other Respiratory: No Cough, No Dry, No Shortness of breath, No SOB with excertion, No Wheezing, No Hemoptysis, No Pleuritic Pain, No Sputum, No Other Gastrointestinal: No Nausea, No Vomiting, No Abdominal Pain, No Diarrhea, No Constipation, No Melena, No Hematochezia, No Other Genitourinary: No Dysuria, No Frequency, No Incontinence, No Hematuria, No Retention, No Other Musculoskeletal: No other, No neck pain, No shoulder pain, No arm pain, No back pain, No hand pain, No leg pain, No foot pain Skin: No Rash, No Lesions, No Jaundice, No Bruising; Other (Left hand bruises) Objective Vitals Vital Signs Date Time Temp Pulse Resp B/P (MAP) Pulse Ox O2 Delivery O2 Flow Rate FiO2 01/06/25 08:54 98.0 65 16 104/49 (67) 99 98.0 01/06/25 08:00 Nasal Cannula* 2 28 Intake/Output Intake and Output 01/06/25 07:00 Intake Total 650 ml Output Total 900 ml Balance -250 ml Intake Oral 0 ml IV Total 650 ml Output Urine Total 900 ml Medications Current Medications Medications Dose Ordered Sig/Willem Route Start Time Stop Time Status Last Admin Dose Admin Ceftriaxone Sodium 50 ml @ 100 mls/hr DAILY@09 IV 01/05/25 09:00 01/06/25 09:52 100 MLS/HR Diagnostic Test (Pha) 1 strip ACHS 01/04/25 22:00 01/06/25 11:30 1 STRIP Insulin Human Regular ACHS SC 01/04/25 22:00 01/06/25 12:04 2 UNITS Dextrose 50 ml UD PRN IV 01/04/25 22:00 Sodium Chloride 1,000 ml @ 60 mls/hr [id number] IV 01/04/25 22:00 01/06/25 07:20 60 MLS/HR Acetaminophen/ Hydrocodone Bitart 1 tab Q4HP PRN PO 01/04/25 22:00 Ondansetron HCl 4 mg Q4HP PRN IV 01/04/25 22:00 Docusate Sodium 100 mg BIDPRN PRN PO 01/04/25 22:00 Acetaminophen 650 mg Q6HP PRN PO 01/04/25 22:00 Nitroglycerin 0.4 mg Q5MINP PRN SL 01/04/25 22:00 Morphine Sulfate 2 mg Q30M PRN IV 01/04/25 22:00 Vancomycin HCl 0 ml @ 0 mls/hr UD IV 01/05/25 23:45 Vancomycin HCl 250 ml @ 250 mls/hr Q18H IV 01/06/25 19:00 Laboratory Results Laboratory Tests 01/05/25 05:51 Coagulation Test 01/05/25 14:15 D-Dimer, Quantitative 2.23 mg/L FEU (0.0-0.49) H Urinalysis Test 01/04/25 16:33 Urine Color Light-brown (Yellow) Urine Clarity Ex.turbid (Clear) Urine pH 6.5 (5.0-9.0) Urine Specific [place] 1.015 (1.001-1.035) Urine Protein 1+ (Negative) H Urine Ketones Negative (Negative) Urine Blood 1+ /uL (Negative) H Urine Nitrite Negative (Negative) Urine Bilirubin Negative (Negative) Urine Urobilinogen Normal mg/dL (Negative) Urine Leukocyte Esterase 3+ /uL (Negative) Urine RBC 34 /hpf (0 - 3) Urine WBC Clumps Present /hpf (None Seen) Urine Microscopic WBC 1596 /HPF (0-3) H Urine Squamous Epithelial Cells None seen /hpf (<5) Urine Bacteria Few /hpf (None Seen) H Urine Yeast (Budding) Few /hpf (None Seen) Urine Glucose 4+ mg/dL (Normal) H Microbiology Microbiology Date/Time Source Procedure Growth Status 01/04/25 18:36 Blood Blood Culture - Preliminary Resulted 01/04/25 16:33 Voided Urine Urine Culture - Preliminary Resulted Labs and/or images reviewed: Labs reviewed by me, Image(s) reviewed by me Assessment/Plan Assessment/Plan Sepsis secondary to urinary tract infection: Blood cultures contaminated, urine cultures mixed Acute urinary tract infection: Rocephin IV Acute generalized weakness possibly secondary to sepsis Diabetes: Insulin sliding scale Hypertension Hypercholesterolemia Chest x-ray negative D-dimer elevated 2.26: DVT ruled out PE ruled out Vandana test negative Flu test neg Bruise left hand secondary to fall: Left hand x-ray negative Time spent 55 minutes Advanced care planning time 20 minutes Patient is full code Plan discussed with: Patient My Orders Orders - FAUSTINO SIBLEY MD Procedure Category Date Status Time Bilat Lower Dvt US 01/05/25 Resulted 15:41 * Wound Consult CONS 01/05/[address] Angio Chest CT 01/06/25 Resulted Contrast 07:00 Date of Service: Jan 06, 2025 Billing Provider: FAUSTINO SIBLEY MD Common Visit Codes: [id number] INP/OBS CARE(HIGH) FAUSTINO SIBLEY MD Jan 06, 2025 12:12
--- NOTE | 2025-01-06 16:18 | ECG ---
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
[2025-01-06] MEDS: VANCOMYCIN 1GM/250ML KIT 250 ML IV SCH (18:59)
[2025-01-07] VITALS (8 sets, daily range): BP systolic 96–115; BP diastolic 50–59; PULSE 65–69; RESP 16–18; TEMP 97.3–98.6; O2SAT 96–99
[2025-01-07] MEDS: ACETAMINOPHEN 325 MG TAB PO PRN (00:51)
--- NOTE | 2025-01-07 13:01 | DVHPN2 ---
Reviewed: Care Plan, H&P, Labs, Medications, Previous Orders, Radiology Changes from previous H/P or p: No Changes Eyes: No Pain, No Vision change, No Conjunctivae inflammation, No Eyelid inflammation, No Other, No Redness ENT: No Ear pain, No Ear discharge, No Nose pain, No Nose discharge, No Nose congestion, No Mouth pain, No Mouth swelling, No Throat pain, No Throat swelling, No Other Cardiovascular: No Chest Pain, No Palpitations, No Orthopnea, No Paroxysmal Noc. Dyspnea, No Edema, No Lt Headedness, No Other Respiratory: No Cough, No Dry, No Shortness of breath, No SOB with excertion, No Wheezing, No Hemoptysis, No Pleuritic Pain, No Sputum, No Other Gastrointestinal: No Nausea, No Vomiting, No Abdominal Pain, No Diarrhea, No Constipation, No Melena, No Hematochezia, No Other Genitourinary: No Dysuria, No Frequency, No Incontinence, No Hematuria, No Retention, No Other Musculoskeletal: No other, No neck pain, No shoulder pain, No arm pain, No back pain, No hand pain, No leg pain, No foot pain Skin: No Rash, No Lesions, No Jaundice, No Bruising; Other (Left hand bruises) Objective Vitals Vital Signs Date Time Temp Pulse Resp B/P (MAP) Pulse Ox O2 Delivery O2 Flow Rate FiO2 01/07/25 08:39 97.8 66 16 104/55 (71) 98 97.8 01/07/25 08:05 Nasal Cannula* 2 28 Intake/Output Intake and Output 01/07/25 07:00 Intake Total 1910 ml Output Total 1250 ml Balance 660 ml Intake Oral 950 ml IV Total 960 ml Output Urine Total 1250 ml Medications Current Medications Medications Dose Ordered Sig/Willem Route Start Time Stop Time Status Last Admin Dose Admin Ceftriaxone Sodium 50 ml @ 100 mls/hr DAILY@09 IV 01/05/25 09:00 01/07/25 09:20 100 MLS/HR Diagnostic Test (Pha) 1 strip ACHS 01/04/25 22:00 01/07/25 11:30 1 STRIP Insulin Human Regular ACHS SC 01/04/25 22:00 01/07/25 12:07 2 UNITS Dextrose 50 ml UD PRN IV 01/04/25 22:00 Sodium Chloride 1,000 ml @ 60 mls/hr [id number] IV 01/04/25 22:00 01/06/25 07:20 60 MLS/HR Acetaminophen/ Hydrocodone Bitart 1 tab Q4HP PRN PO 01/04/25 22:00 Ondansetron HCl 4 mg Q4HP PRN IV 01/04/25 22:00 Docusate Sodium 100 mg BIDPRN PRN PO 01/04/25 22:00 Acetaminophen 650 mg Q6HP PRN PO 01/04/25 22:00 01/07/25 00:51 650 MG Nitroglycerin 0.4 mg Q5MINP PRN SL 01/04/25 22:00 Morphine Sulfate 2 mg Q30M PRN IV 01/04/25 22:00 Vancomycin HCl 0 ml @ 0 mls/hr UD IV 01/05/25 23:45 Vancomycin HCl 250 ml @ 250 mls/hr Q18H IV 01/06/25 19:00 01/06/25 18:59 250 MLS/HR Laboratory Results Laboratory Tests 01/05/25 05:51 Urinalysis Test 01/04/25 16:33 Urine Color Light-brown (Yellow) Urine Clarity Ex.turbid (Clear) Urine pH 6.5 (5.0-9.0) Urine Specific [place] 1.015 (1.001-1.035) Urine Protein 1+ (Negative) H Urine Ketones Negative (Negative) Urine Blood 1+ /uL (Negative) H Urine Nitrite Negative (Negative) Urine Bilirubin Negative (Negative) Urine Urobilinogen Normal mg/dL (Negative) Urine Leukocyte Esterase 3+ /uL (Negative) Urine RBC 34 /hpf (0 - 3) Urine WBC Clumps Present /hpf (None Seen) Urine Microscopic WBC 1596 /HPF (0-3) H Urine Squamous Epithelial Cells None seen /hpf (<5) Urine Bacteria Few /hpf (None Seen) H Urine Yeast (Budding) Few /hpf (None Seen) Urine Glucose 4+ mg/dL (Normal) H Microbiology Microbiology Date/Time Source Procedure Growth Status 01/04/25 18:36 Blood Blood Culture - Final Staphylococcus epidermidis Complete 01/04/25 16:33 Voided Urine Urine Culture - Final Complete Labs and/or images reviewed: Labs reviewed by me, Image(s) reviewed by me Assessment/Plan Assessment/Plan Sepsis secondary to urinary tract infection: Blood cultures contaminated, urine cultures mixed Acute urinary tract infection: Treated with the Rocephin Acute generalized weakness possibly secondary to sepsis Diabetes: Insulin sliding scale Hypertension Hypercholesterolemia Chest x-ray negative D-dimer elevated 2.26: DVT ruled out PE ruled out Vandana test negative Flu test neg Bruise left hand secondary to fall: Left hand x-ray negative Time spent 55 minutes Advanced care planning time 20 minutes Patient is full code Plan discussed with: Patient My Orders Orders - FAUSTINO SIBLEY MD Procedure Category Date Status Time Apply Barrier Cream TRACI 01/06/25 In Process 11:15 * Dietary Consult CONS 01/06/25 Transmitted 14:43 Date of Service: Jan 07, 2025 Billing Provider: FAUSTINO SIBLEY MD Common Visit Codes: [id number] INP/OBS CARE(HIGH) FAUSTINO SIBLEY MD Jan 07, 2025 13:01
[2025-01-07] MEDS ORDERED: CIPR-173 PO (13:02)
--- NOTE | 2025-01-07 13:05 | DVHDS2 ---
Discharge Summary Date of Admission Jan 04, 2025 at 22:00 Date of Discharge: Jan 07, 2025 Admitting Diagnosis Weakness Wounds: None Labs/Diagnostic Data: Laboratory Results Test 01/07/25 11:51 01/05/25 14:15 01/05/25 13:50 01/05/25 05:51 POC Glucose 141 mg/dl (70-106) D-Dimer, Quantitative 2.23 mg/L FEU (0.0-0.49) Influenza Type A Antigen Negative (Negative) Influenza Type B Antigen Negative (Negative) SARS-CoV-2 Antigen (Rapid) Negative (NEGATIVE) White Blood Count 6.2 10^3/uL (4.4-10.8) Red Blood Count 3.90 10^6/uL (4.5-5.90) Hemoglobin 12.2 g/dL (13.5-17.5) Hematocrit 36.5 % (41.0-53.0) Mean Corpuscular Volume 93.6 fL (80.0-100.0) Mean Corpuscular Hemoglobin 31.3 pg (28.0-32.0) Mean Corpuscular Hemoglobin Concent 33.5 g/dL (32.0-36.0) Red Cell Distribution Width 14.1 % (11.8-14.3) Platelet Count 127 10^3/uL (140-450) Mean Platelet Volume 8.2 fL (6.9-10.8) Neutrophils (%) (Auto) 63.7 % (37.0-80.0) Lymphocytes (%) (Auto) 22.2 % (10.0-50.0) Monocytes (%) (Auto) 9.5 % (0.0-12.0) Eosinophils (%) (Auto) 3.8 % (0.0-7.0) Basophils (%) (Auto) 0.8 % (0.0-2.0) Neutrophils # (Auto) 4.0 10 ^3/uL (1.6-8.6) Lymphocytes # (Auto) 1.4 10 ^3/uL (0.4-5.4) Monocytes # (Auto) 0.6 10 ^3/uL (0-1.3) Eosinophils # (Auto) 0.2 10 ^3/uL (0-0.8) Basophils # (Auto) 0 10 ^3/uL (0-0.2) Nucleated Red Blood Cells 0.2 % Sodium Level 139 mmol/L (136-145) Potassium Level 4.2 mmol/L (3.5-5.1) Chloride Level 106 mmol/L (98-107) Carbon Dioxide Level 25 mmol/L (20-31) Anion Gap 8 (5-15) Blood Urea Nitrogen 25 mg/dL (9-23) Creatinine 1.10 mg/dL (0.700-1.30) Glomerular Filtration Rate Calc 65 mL/min (>90) BUN/Creatinine Ratio 22.7 (10.0-20.0) Serum Glucose 102 mg/dL (74-106) Calcium Level 9.7 mg/dL (8.7-10.4) Total Bilirubin 0.6 mg/dL (0.2-1.0) Aspartate Amino Transferase (AST) 14 U/L (13-40) Alanine Aminotransferase (ALT) 14 U/L (7-40) Alkaline Phosphatase 103 U/L (46-116) Total Protein 5.8 g/dL (5.7-8.2) Albumin 3.3 g/dL (3.2-4.8) Test 01/04/25 19:38 01/04/25 18:29 01/04/25 16:33 Troponin I High Sensitivity 3 ng/L (</=54) Lactic Acid Level 1.5 mmol/L (0.4-2.0) B-Type Natriuretic Peptide 51.42 pg/mL (0-100) Urine Color Light-brown (Yellow) Urine Clarity Ex.turbid (Clear) Urine pH 6.5 (5.0-9.0) Urine Specific [place] 1.015 (1.001-1.035) Urine Protein 1+ (Negative) Urine Ketones Negative (Negative) Urine Blood 1+ /uL (Negative) Urine Nitrite Negative (Negative) Urine Bilirubin Negative (Negative) Urine Urobilinogen Normal mg/dL (Negative) Urine Leukocyte Esterase 3+ /uL (Negative) Urine RBC 34 /hpf (0 - 3) Urine WBC Clumps Present /hpf (None Seen) Urine Microscopic WBC 1596 /HPF (0-3) Urine Squamous Epithelial Cells None seen /hpf (<5) Urine Bacteria Few /hpf (None Seen) Urine Yeast (Budding) Few /hpf (None Seen) Urine Glucose 4+ mg/dL (Normal) Other Laboratory Tests 01/05/25 05:51 Brief Hx & Hospital Course: 84-year-old male with a history of hypertension diabetes hypercholesterolemia came in for generalized weakness found to be in sepsis secondary to urinary tract infection treated with Rocephin blood cultures contaminated urine cultures were mixed. Comorbid conditions treated appropriately D-dimer elevated 2.26 PE ruled out DVT ruled out Vandana test negative flu test negative patient has a history of fall he had a bruise in the left hand secondary to fall left hand x- rays negative for any fracture at the time of discharge patient is alert awake oriented x3 stable vital signs. Being discharged home on Cipro for UTI and he will follow up with his primary Dr Consults/Reason for consult None Operations or Procedures CT angiogram Venous ultrasound Condition at Discharge: Fair Final Diagnosis/Problems List Sepsis secondary to urinary tract infection: Blood cultures contaminated, urine cultures mixed Acute urinary tract infection: Treated with the Rocephin Acute generalized weakness possibly secondary to sepsis Diabetes: Insulin sliding scale Hypertension Hypercholesterolemia Chest x-ray negative D-dimer elevated 2.26: DVT ruled out PE ruled out Vandana test negative Flu test neg Bruise left hand secondary to fall: Left hand x-ray negative Discharge Disposition: Home Discharge Instruct/Medications Diet: Regular Activity: Light activity Follow Up/Referral: Follow up with the primary Dr in one week Use medications as prescribed Medications: Cipro Transmitted to pharmacy 39 (Time taken for discharge summary 39 minutes) Discharge Statement: "Patient was advised to return to the ER or call 911 if any headaches, dizziness, shortness of breath, chest pain, abdominal pain, bleeding, fevers, or worsening of medical condition. Patient was counseled about treatment plan, medications, possible side effects, patientverbalized understanding. All questions were answered to the best of my ability. This discharge took greater then 30 minutes in planning, reviewing documentation, counseling the patient, and discussing with other team members." ASSESSMENT ASSESSMENT Assessment Sepsis secondary to urinary tract infection: Blood cultures contaminated, urine cultures mixed Acute urinary tract infection: Treated with the Rocephin Acute generalized weakness possibly secondary to sepsis Diabetes: Insulin sliding scale Hypertension Hypercholesterolemia Chest x-ray negative D-dimer elevated 2.26: DVT ruled out PE ruled out Vandana test negative Flu test neg Bruise left hand secondary to fall: Left hand x-ray negative Date of Service: Jan 07, 2025 Billing Provider: FAUSTINO SIBLEY MD Common Visit Codes: [id number] INP/OBS CARE(HIGH) FAUSTINO SIBLEY MD Jan 07, 2025 13:05
[2025-01-07] MEDS: CIPROFLOXACIN HCL 500 MG TAB PO SCH (22:39)
[2025-01-08] VITALS (8 sets, daily range): BP systolic 95–114; BP diastolic 52–76; PULSE 65–69; RESP 15–17; TEMP 97.9–98.3; O2SAT 90–98
--- NOTE | 2025-01-08 13:09 | DVHPN2 ---
Reviewed: Care Plan, H&P, Labs, Medications, Previous Orders, Radiology Changes from previous H/P or p: No Changes Eyes: No Pain, No Vision change, No Conjunctivae inflammation, No Eyelid inflammation, No Other, No Redness ENT: No Ear pain, No Ear discharge, No Nose pain, No Nose discharge, No Nose congestion, No Mouth pain, No Mouth swelling, No Throat pain, No Throat swelling, No Other Cardiovascular: No Chest Pain, No Palpitations, No Orthopnea, No Paroxysmal Noc. Dyspnea, No Edema, No Lt Headedness, No Other Respiratory: No Cough, No Dry, No Shortness of breath, No SOB with excertion, No Wheezing, No Hemoptysis, No Pleuritic Pain, No Sputum, No Other Gastrointestinal: No Nausea, No Vomiting, No Abdominal Pain, No Diarrhea, No Constipation, No Melena, No Hematochezia, No Other Genitourinary: No Dysuria, No Frequency, No Incontinence, No Hematuria, No Retention, No Other Musculoskeletal: No other, No neck pain, No shoulder pain, No arm pain, No back pain, No hand pain, No leg pain, No foot pain Skin: No Rash, No Lesions, No Jaundice, No Bruising; Other (Left hand bruises) Objective Vitals Vital Signs Date Time Temp Pulse Resp B/P (MAP) Pulse Ox O2 Delivery O2 Flow Rate FiO2 01/08/25 08:17 Nasal Cannula* 2 28 01/08/25 08:15 65 01/08/25 05:22 98.0 17 107/58 (74) 98 98.0 Intake/Output Intake and Output 01/08/25 07:00 Intake Total 4100 ml Output Total 1575 ml Balance 2525 ml Intake Oral 860 ml IV Total 3240 ml Output Urine Total 1575 ml Medications Current Medications Medications Dose Ordered Sig/Willem Route Start Time Stop Time Status Last Admin Dose Admin Ceftriaxone Sodium 50 ml @ 100 mls/hr DAILY@09 IV 01/05/25 09:00 01/08/25 09:07 100 MLS/HR Diagnostic Test (Pha) 1 strip ACHS 01/04/25 22:00 01/08/25 11:35 1 STRIP Insulin Human Regular ACHS SC 01/04/25 22:00 01/08/25 11:42 2 UNITS Dextrose 50 ml UD PRN IV 01/04/25 22:00 Sodium Chloride 1,000 ml @ 60 mls/hr [id number] IV 01/04/25 22:00 01/08/25 09:20 60 MLS/HR Acetaminophen/ Hydrocodone Bitart 1 tab Q4HP PRN PO 01/04/25 22:00 Ondansetron HCl 4 mg Q4HP PRN IV 01/04/25 22:00 Docusate Sodium 100 mg BIDPRN PRN PO 01/04/25 22:00 Acetaminophen 650 mg Q6HP PRN PO 01/04/25 22:00 01/07/25 00:51 650 MG Nitroglycerin 0.4 mg Q5MINP PRN SL 01/04/25 22:00 Morphine Sulfate 2 mg Q30M PRN IV 01/04/25 22:00 Vancomycin HCl 0 ml @ 0 mls/hr UD IV 01/05/25 23:45 Vancomycin HCl 250 ml @ 250 mls/hr Q18H IV 01/06/25 19:00 01/08/25 06:31 250 MLS/HR Ciprofloxacin 500 mg Q12HR PO 01/07/25 22:00 01/08/25 09:08 500 MG Laboratory Results Laboratory Tests 01/05/25 05:51 01/08/25 05:43 Urinalysis Test 01/04/25 16:33 Urine Color Light-brown (Yellow) Urine Clarity Ex.turbid (Clear) Urine pH 6.5 (5.0-9.0) Urine Specific [place] 1.015 (1.001-1.035) Urine Protein 1+ (Negative) H Urine Ketones Negative (Negative) Urine Blood 1+ /uL (Negative) H Urine Nitrite Negative (Negative) Urine Bilirubin Negative (Negative) Urine Urobilinogen Normal mg/dL (Negative) Urine Leukocyte Esterase 3+ /uL (Negative) Urine RBC 34 /hpf (0 - 3) Urine WBC Clumps Present /hpf (None Seen) Urine Microscopic WBC 1596 /HPF (0-3) H Urine Squamous Epithelial Cells None seen /hpf (<5) Urine Bacteria Few /hpf (None Seen) H Urine Yeast (Budding) Few /hpf (None Seen) Urine Glucose 4+ mg/dL (Normal) H Blood Gas Results Test 01/08/25 09:41 Arterial Blood pH 7.440 (7.350-7.450) FiO2 % 21.0 Microbiology Microbiology Date/Time Source Procedure Growth Status 01/04/25 18:36 Blood Blood Culture - Final Staphylococcus epidermidis Complete 01/04/25 16:33 Voided Urine Urine Culture - Final Complete Labs and/or images reviewed: Labs reviewed by me, Image(s) reviewed by me Assessment/Plan Assessment/Plan Sepsis secondary to urinary tract infection: Blood cultures contaminated, urine cultures mixed Acute urinary tract infection: Treated with the Rocephin Acute generalized weakness possibly secondary to sepsis Diabetes: Insulin sliding scale Hypertension Hypercholesterolemia Chest x-ray negative D-dimer elevated 2.26: DVT ruled out PE ruled out Vandana test negative Flu test neg Bruise left hand secondary to fall: Left hand x-ray negative Time spent 55 minutes Advanced care planning time 20 minutes Patient is full code Physical therapy ordered as the patient lives alone at home ABG done today shows patient does not qualify for home oxygen Plan discussed with: Patient My Orders Orders - FAUSTINO SIBLEY MD Procedure Category Date Status Time Abg W/ Co-Ox RT 01/08/25 Logged 08:52 Pt Request For Service PT 01/08/25 Verified 13:07 Date of Service: Jan 08, 2025 Billing Provider: FAUSTINO SIBLEY MD Common Visit Codes: [id number] INP/OBS CARE(HIGH) FAUSTINO SIBLEY MD Jan 08, 2025 13:09
--- NOTE | 2025-01-08 16:18 | MEDREC ---
[facility] Intervention Section I [facility] Intervention: Deescalate AB based on CS (BLOOD CULTURE POSITIVE FOR STAPHYLOCOCCUS EPIDERMIS - POTENTIAL CONTAMINATION - SENSITIVE TO CIPROFLOXACIN - PLEASE CONSIDER D/C VANCOMYCIN), Duplication of therapy (PLEASE CONSIDER D/C CEFTRIAXONE POTENTIAL DUPLICATION OF THERAPY WITH CIPROFLOXACIN) JUVENCIO NOYOLA PHARMACIST Jan 08, 2025 16:18
[2025-01-09] VITALS (8 sets, daily range): BP systolic 94–116; BP diastolic 42–62; PULSE 65–77; RESP 18; TEMP 97.9–98.1; O2SAT 90–93
[2025-01-09 07:35] LABS: Anion Gap 8 (5-15); Carbon Dioxide 24 mmol/L (20-31); Chloride 107 mmol/L (98-107); Potassium 3.6 mmol/L (3.5-5.1); Sodium 139 mmol/L (136-145)
[2025-01-09 07:36] LABS: Calcium 9.9 mg/dL (8.7-10.4)
[2025-01-09 07:41] LABS: BUN/Creatinine Ratio 14.3 (10.0-20.0); Blood Urea Nitrogen 14 mg/dL (9-23); Glucose 99 mg/dL (74-106)
--- NOTE | 2025-01-09 11:57 | DVHPN2 ---
Reviewed: Care Plan, H&P, Labs, Medications, Previous Orders, Radiology Changes from previous H/P or p: No Changes Eyes: No Pain, No Vision change, No Conjunctivae inflammation, No Eyelid inflammation, No Other, No Redness ENT: No Ear pain, No Ear discharge, No Nose pain, No Nose discharge, No Nose congestion, No Mouth pain, No Mouth swelling, No Throat pain, No Throat swelling, No Other Cardiovascular: No Chest Pain, No Palpitations, No Orthopnea, No Paroxysmal Noc. Dyspnea, No Edema, No Lt Headedness, No Other Respiratory: No Cough, No Dry, No Shortness of breath, No SOB with excertion, No Wheezing, No Hemoptysis, No Pleuritic Pain, No Sputum, No Other Gastrointestinal: No Nausea, No Vomiting, No Abdominal Pain, No Diarrhea, No Constipation, No Melena, No Hematochezia, No Other Genitourinary: No Dysuria, No Frequency, No Incontinence, No Hematuria, No Retention, No Other Musculoskeletal: No other, No neck pain, No shoulder pain, No arm pain, No back pain, No hand pain, No leg pain, No foot pain Skin: No Rash, No Lesions, No Jaundice, No Bruising; Other (Left hand bruises) Objective Vitals Vital Signs Date Time Temp Pulse Resp B/P (MAP) Pulse Ox O2 Delivery O2 Flow Rate FiO2 01/09/25 08:09 97.9 68 18 94/50 (65) 93 97.9 01/09/25 08:00 Nasal Cannula* 2 28 Intake/Output Intake and Output 01/09/25 07:00 Intake Total 1485 ml Output Total 350 ml Balance 1135 ml Intake Oral 800 ml IV Total 685 ml Output Urine Total 350 ml Medications Current Medications Medications Dose Ordered Sig/Willem Route Start Time Stop Time Status Last Admin Dose Admin Ceftriaxone Sodium 50 ml @ 100 mls/hr DAILY@09 IV 01/05/25 09:00 01/09/25 09:06 100 MLS/HR Diagnostic Test (Pha) 1 strip ACHS 01/04/25 22:00 01/09/25 11:21 1 STRIP Insulin Human Regular ACHS SC 01/04/25 22:00 01/09/25 11:21 2 UNITS Dextrose 50 ml UD PRN IV 01/04/25 22:00 Sodium Chloride 1,000 ml @ 60 mls/hr [id number] IV 01/04/25 22:00 01/08/25 22:54 60 MLS/HR Acetaminophen/ Hydrocodone Bitart 1 tab Q4HP PRN PO 01/04/25 22:00 Ondansetron HCl 4 mg Q4HP PRN IV 01/04/25 22:00 Docusate Sodium 100 mg BIDPRN PRN PO 01/04/25 22:00 Acetaminophen 650 mg Q6HP PRN PO 01/04/25 22:00 01/07/25 00:51 650 MG Nitroglycerin 0.4 mg Q5MINP PRN SL 01/04/25 22:00 Morphine Sulfate 2 mg Q30M PRN IV 01/04/25 22:00 Vancomycin HCl 0 ml @ 0 mls/hr UD IV 01/05/25 23:45 Vancomycin HCl 250 ml @ 250 mls/hr Q18H IV 01/06/25 19:00 01/09/25 00:32 250 MLS/HR Ciprofloxacin 500 mg Q12HR PO 01/07/25 22:00 01/09/25 09:05 500 MG Laboratory Results Laboratory Tests 01/05/25 05:51 01/09/25 04:56 Chemistry Test 01/09/25 04:56 Calcium Level 9.9 mg/dL (8.7-10.4) Urinalysis Test 01/04/25 16:33 Urine Color Light-brown (Yellow) Urine Clarity Ex.turbid (Clear) Urine pH 6.5 (5.0-9.0) Urine Specific [place] 1.015 (1.001-1.035) Urine Protein 1+ (Negative) H Urine Ketones Negative (Negative) Urine Blood 1+ /uL (Negative) H Urine Nitrite Negative (Negative) Urine Bilirubin Negative (Negative) Urine Urobilinogen Normal mg/dL (Negative) Urine Leukocyte Esterase 3+ /uL (Negative) Urine RBC 34 /hpf (0 - 3) Urine WBC Clumps Present /hpf (None Seen) Urine Microscopic WBC 1596 /HPF (0-3) H Urine Squamous Epithelial Cells None seen /hpf (<5) Urine Bacteria Few /hpf (None Seen) H Urine Yeast (Budding) Few /hpf (None Seen) Urine Glucose 4+ mg/dL (Normal) H Microbiology Microbiology Date/Time Source Procedure Growth Status 01/04/25 18:36 Blood Blood Culture - Final Staphylococcus epidermidis Complete 01/04/25 16:33 Voided Urine Urine Culture - Final Complete Labs and/or images reviewed: Labs reviewed by me, Image(s) reviewed by me Assessment/Plan Assessment/Plan Sepsis secondary to urinary tract infection: Blood cultures contaminated, urine cultures mixed DC vancomycin Acute urinary tract infection: Treated with Rocephin Acute generalized weakness possibly secondary to sepsis Diabetes: Insulin sliding scale Hypertension Hypercholesterolemia Chest x-ray negative D-dimer elevated 2.26: DVT ruled out PE ruled out Vandana test negative Flu test neg Bruise left hand secondary to fall: Left hand x-ray negative Time spent 55 minutes Advanced care planning time 20 minutes Patient is full code Physical therapy ordered as the patient lives alone at home ABG done today shows patient does not qualify for home oxygen Social Service consult placed for walker. 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
[2025-01-09] MEDS: HYDROcodone-ACET 5/325MG TAB PO PRN (15:35)
[2025-01-10] VITALS (7 sets, daily range): BP systolic 110–136; BP diastolic 55–65; PULSE 65–97; RESP 18; TEMP 96–98.2; O2SAT 92–97
[2025-01-10 07:47] LABS: Anion Gap 4 (5-15); Carbon Dioxide 27 mmol/L (20-31); Potassium 4.2 mmol/L (3.5-5.1); Sodium 140 mmol/L (136-145)
[2025-01-10 07:48] LABS: Calcium 9.9 mg/dL (8.7-10.4); Chloride 109 mmol/L (98-107)
[2025-01-10 07:53] LABS: BUN/Creatinine Ratio 12.9 (10.0-20.0); Blood Urea Nitrogen 15 mg/dL (9-23)
[2025-01-10 08:01] LABS: Glucose 110 mg/dL (74-106)
--- NOTE | 2025-01-10 11:51 | DVHPN2 ---
Reviewed: Care Plan, H&P, Labs, Medications, Previous Orders, Radiology Changes from previous H/P or p: No Changes Eyes: No Pain, No Vision change, No Conjunctivae inflammation, No Eyelid inflammation, No Other, No Redness ENT: No Ear pain, No Ear discharge, No Nose pain, No Nose discharge, No Nose congestion, No Mouth pain, No Mouth swelling, No Throat pain, No Throat swelling, No Other Cardiovascular: No Chest Pain, No Palpitations, No Orthopnea, No Paroxysmal Noc. Dyspnea, No Edema, No Lt Headedness, No Other Respiratory: No Cough, No Dry, No Shortness of breath, No SOB with excertion, No Wheezing, No Hemoptysis, No Pleuritic Pain, No Sputum, No Other Gastrointestinal: No Nausea, No Vomiting, No Abdominal Pain, No Diarrhea, No Constipation, No Melena, No Hematochezia, No Other Genitourinary: No Dysuria, No Frequency, No Incontinence, No Hematuria, No Retention, No Other Musculoskeletal: No other, No neck pain, No shoulder pain, No arm pain, No back pain, No hand pain, No leg pain, No foot pain Skin: No Rash, No Lesions, No Jaundice, No Bruising; Other (Left hand bruises) Objective Vitals Vital Signs Date Time Temp Pulse Resp B/P (MAP) Pulse Ox O2 Delivery O2 Flow Rate FiO2 01/10/25 08:51 96.0 65 18 110/61 (77) 97 96.0 01/10/25 08:00 Nasal Cannula* 2 28 Intake/Output Intake and Output 01/10/25 07:00 Intake Total 770 ml Output Total 1150 ml Balance -380 ml Intake Oral 770 ml Output Urine Total 1150 ml # Voids 3 Medications Current Medications Medications Dose Ordered Sig/Willem Route Start Time Stop Time Status Last Admin Dose Admin Ceftriaxone Sodium 50 ml @ 100 mls/hr DAILY@09 IV 01/05/25 09:00 01/10/25 09:22 100 MLS/HR Diagnostic Test (Pha) 1 strip ACHS 01/04/25 22:00 01/10/25 07:00 1 STRIP Insulin Human Regular ACHS SC 01/04/25 22:00 01/09/25 17:27 2 UNITS Dextrose 50 ml UD PRN IV 01/04/25 22:00 Sodium Chloride 1,000 ml @ 60 mls/hr [id number] IV 01/04/25 22:00 01/08/25 22:54 60 MLS/HR Acetaminophen/ Hydrocodone Bitart 1 tab Q4HP PRN PO 01/04/25 22:00 01/09/25 15:35 1 TAB Ondansetron HCl 4 mg Q4HP PRN IV 01/04/25 22:00 Docusate Sodium 100 mg BIDPRN PRN PO 01/04/25 22:00 Acetaminophen 650 mg Q6HP PRN PO 01/04/25 22:00 01/07/25 00:51 650 MG Nitroglycerin 0.4 mg Q5MINP PRN SL 01/04/25 22:00 Morphine Sulfate 2 mg Q30M PRN IV 01/04/25 22:00 Ciprofloxacin 500 mg Q12HR PO 01/07/25 22:00 01/10/25 09:23 500 MG Laboratory Results Laboratory Tests 01/05/25 05:51 01/10/25 06:47 Chemistry Test 01/10/25 06:47 Calcium Level 9.9 mg/dL (8.7-10.4) Urinalysis Test 01/04/25 16:33 Urine Color Light-brown (Yellow) Urine Clarity Ex.turbid (Clear) Urine pH 6.5 (5.0-9.0) Urine Specific [place] 1.015 (1.001-1.035) Urine Protein 1+ (Negative) H Urine Ketones Negative (Negative) Urine Blood 1+ /uL (Negative) H Urine Nitrite Negative (Negative) Urine Bilirubin Negative (Negative) Urine Urobilinogen Normal mg/dL (Negative) Urine Leukocyte Esterase 3+ /uL (Negative) Urine RBC 34 /hpf (0 - 3) Urine WBC Clumps Present /hpf (None Seen) Urine Microscopic WBC 1596 /HPF (0-3) H Urine Squamous Epithelial Cells None seen /hpf (<5) Urine Bacteria Few /hpf (None Seen) H Urine Yeast (Budding) Few /hpf (None Seen) Urine Glucose 4+ mg/dL (Normal) H Microbiology Microbiology Date/Time Source Procedure Growth Status 01/04/25 18:36 Blood Blood Culture - Final Staphylococcus epidermidis Complete 01/04/25 16:33 Voided Urine Urine Culture - Final Complete Labs and/or images reviewed: Labs reviewed by me Assessment/Plan Assessment/Plan Sepsis secondary to urinary tract infection: Blood cultures contaminated, urine cultures mixed DC vancomycin Acute urinary tract infection: Treated with Rocephin Acute generalized weakness possibly secondary to sepsis Diabetes: Insulin sliding scale Hypertension Hypercholesterolemia Chest x-ray negative D-dimer elevated 2.26: DVT ruled out PE ruled out Vandana test negative Flu test neg Bruise left hand secondary to fall: Left hand x-ray negative Patient was discharged three days ago 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
[2025-01-11 05:00] VITALS: BP 110/57; PULSE 65; RESP 18; TEMP 97.4; O2SAT 97
[2025-01-11 08:00] VITALS: PULSE 65
[2025-01-11 09:00] VITALS: BP 116/60; PULSE 69; RESP 18; TEMP 97.5; O2SAT 99
--- NOTE | 2025-01-11 10:47 | DVHPN2 ---
Reviewed: Care Plan, H&P, Labs, Medications, Previous Orders, Radiology Changes from previous H/P or p: No Changes Eyes: No Pain, No Vision change, No Conjunctivae inflammation, No Eyelid inflammation, No Other, No Redness ENT: No Ear pain, No Ear discharge, No Nose pain, No Nose discharge, No Nose congestion, No Mouth pain, No Mouth swelling, No Throat pain, No Throat swelling, No Other Cardiovascular: No Chest Pain, No Palpitations, No Orthopnea, No Paroxysmal Noc. Dyspnea, No Edema, No Lt Headedness, No Other Respiratory: No Cough, No Dry, No Shortness of breath, No SOB with excertion, No Wheezing, No Hemoptysis, No Pleuritic Pain, No Sputum, No Other Gastrointestinal: No Nausea, No Vomiting, No Abdominal Pain, No Diarrhea, No Constipation, No Melena, No Hematochezia, No Other Genitourinary: No Dysuria, No Frequency, No Incontinence, No Hematuria, No Retention, No Other Musculoskeletal: No other, No neck pain, No shoulder pain, No arm pain, No back pain, No hand pain, No leg pain, No foot pain Skin: No Rash, No Lesions, No Jaundice, No Bruising; Other (Left hand bruises) Objective Vitals Vital Signs Date Time Temp Pulse Resp B/P (MAP) Pulse Ox O2 Delivery O2 Flow Rate FiO2 01/11/25 09:00 97.5 69 18 116/60 (78) 99 97.5 01/10/25 20:00 Nasal Cannula* 2 28 Intake/Output Intake and Output 01/11/25 07:00 Intake Total 1670 ml Output Total 520 ml Balance 1150 ml Intake Oral 1620 ml IV Total 50 ml Output Urine Total 520 ml # Voids 3 # Bowel Movements 1 Medications Current Medications Medications Dose Ordered Sig/Willem Route Start Time Stop Time Status Last Admin Dose Admin Ceftriaxone Sodium 50 ml @ 100 mls/hr DAILY@09 IV 01/05/25 09:00 01/11/25 08:46 100 MLS/HR Diagnostic Test (Pha) 1 strip ACHS 01/04/25 22:00 01/11/25 06:29 1 STRIP Insulin Human Regular ACHS SC 01/04/25 22:00 01/10/25 21:48 2 UNITS Dextrose 50 ml UD PRN IV 01/04/25 22:00 Sodium Chloride 1,000 ml @ 60 mls/hr [id number] IV 01/04/25 22:00 01/10/25 11:20 60 MLS/HR Acetaminophen/ Hydrocodone Bitart 1 tab Q4HP PRN PO 01/04/25 22:00 01/09/25 15:35 1 TAB Ondansetron HCl 4 mg Q4HP PRN IV 01/04/25 22:00 Docusate Sodium 100 mg BIDPRN PRN PO 01/04/25 22:00 Acetaminophen 650 mg Q6HP PRN PO 01/04/25 22:00 01/07/25 00:51 650 MG Nitroglycerin 0.4 mg Q5MINP PRN SL 01/04/25 22:00 Morphine Sulfate 2 mg Q30M PRN IV 01/04/25 22:00 Ciprofloxacin 500 mg Q12HR PO 01/07/25 22:00 01/11/25 08:47 500 MG Laboratory Results Laboratory Tests 01/05/25 05:51 01/10/25 06:47 Urinalysis Test 01/04/25 16:33 Urine Color Light-brown (Yellow) Urine Clarity Ex.turbid (Clear) Urine pH 6.5 (5.0-9.0) Urine Specific [place] 1.015 (1.001-1.035) Urine Protein 1+ (Negative) H Urine Ketones Negative (Negative) Urine Blood 1+ /uL (Negative) H Urine Nitrite Negative (Negative) Urine Bilirubin Negative (Negative) Urine Urobilinogen Normal mg/dL (Negative) Urine Leukocyte Esterase 3+ /uL (Negative) Urine RBC 34 /hpf (0 - 3) Urine WBC Clumps Present /hpf (None Seen) Urine Microscopic WBC 1596 /HPF (0-3) H Urine Squamous Epithelial Cells None seen /hpf (<5) Urine Bacteria Few /hpf (None Seen) H Urine Yeast (Budding) Few /hpf (None Seen) Urine Glucose 4+ mg/dL (Normal) H Microbiology Microbiology Date/Time Source Procedure Growth Status 01/04/25 18:36 Blood Blood Culture - Final Staphylococcus epidermidis Complete 01/04/25 16:33 Voided Urine Urine Culture - Final Complete Labs and/or images reviewed: Labs reviewed by me, Image(s) reviewed by me Assessment/Plan Assessment/Plan Sepsis secondary to urinary tract infection: Blood cultures contaminated, urine cultures mixed DC vancomycin Acute urinary tract infection: Treated with Rocephin Acute generalized weakness possibly secondary to sepsis Diabetes: Insulin sliding scale Hypertension Hypercholesterolemia Chest x-ray negative D-dimer elevated 2.26: DVT ruled out PE ruled out Vandana test negative Flu test neg Bruise left hand secondary to fall: Left hand x-ray negative Patient awaiting placement Plan discussed with: Patient My Orders Orders - FAUSTINO SIBLEY MD Procedure Category Date Status Time * 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
[2025-01-11 13:00] VITALS: BP 116/60; PULSE 69; RESP 16; TEMP 97.5; O2SAT 99
== END 2025-01-11 14:50 | disposition home or self-care (01) | DRG 871 ==
LOC: EDBD 15:50 → ER 15:50 → OVERFLOW 22:00 → TELE-WESTW 01-05 18:07
PROVIDERS: ADMIT Family Medicine; ATTEND Family Medicine
DX: A41.9 Sepsis, unspecified organism (principal); N17.0 Acute kidney failure with tubular necrosis; N39.0 Urinary tract infection, site not specified; E11.65 Type 2 diabetes mellitus with hyperglycemia; Z20.822 Contact with and (suspected) exposure to COVID-19; N40.0 Benign prostatic hyperplasia without lower urinary tract symptoms; I10 Essential (primary) hypertension; E78.00 Pure hypercholesterolemia, unspecified; S60.222A Contusion of left hand, initial encounter; Z79.899 Other long term (current) drug therapy; W18.39XA Other fall on same level, initial encounter; Y93.89 Activity, other specified; Y92.89 Other specified places as the place of occurrence of the external cause; Y99.8 Other external cause status
CPT/HCPCS: 36415; 36600; 71045; 71275; 73130; 80048; 80053; 80202; 81001; 82565; 82805; 82962; 83605; 83880; 84484; 85025; 85379; 87040; 87077; 87086; 87186; 87426; 87804; 93005; 93970; 96361; 96365; 96366; 97110; 97116; 97163; G0378; J1815

== ENCOUNTER 2025-05-14 21:45 | Inpatient (IN) | payer OTHER ==
[~2025-05-14] VITALS: Ht 180.3 cm; Wt 68.2 kg
[~2025-05-14 21:45] MED LIST: CIPR-173 PO
[2025-05-14 22:00] VITALS: PULSE 109; RESP 28; O2SAT 100
--- NOTE | 2025-05-14 22:09 | ED.PDOC ---
GI ASSESSMENT HPI Comments 84 year old male presents to the ED via EMS with a chief complaint of coffee ground emesis onset today (05/14/25) about 1 hour ago. Per EMS, patient is from a boarding facility, began experiencing coffee ground emesis as well as hypotension, 911 was called. Upon EMS arrival, patient was hypotensive 56/32, O2 sat was 70% on RA with heavy wheezing, breathing treatment was given, was placed on 7L O2. EMS states only PMHx was given was unspecified heart disease. By previous visits, PMHx HTN, DM, HLD. Patient is a poor historian, nonverbal. No other symptoms or modifying factors present at this time. Chief Complaint: GI Bleed Time Seen by MD: 21:55 Reviewed Notes: Medications, Allergies Allergies: Coded Allergies: NO KNOWN ALLERGIES (Unverified , 01/04/25) Home Meds Active Scripts Ciprofloxacin Hcl (Cipro) 500 Mg Tab, 1 TAB PO BID, #20 TAB Prov:FAUSTINO SIBLEY MD 01/07/25 Information Source: Emergency Med Personnel Mode of Arrival: EMS Timing: Hours Duration: Since onset Prehospital treatment: Oxygen (7L) Vomitus: Coffee Grounds Severity: Moderate Recent: None Recent Hx of: None Associated sign and symptoms: Nausea, Vomiting Vital Signs Vital Signs Date Time Temp Pulse Resp B/P (MAP) Pulse Ox O2 Delivery O2 Flow Rate FiO2 05/15/25 00:15 111 18 104/58 (73) 100 05/14/25 22:01 97.6 97.6 05/14/25 22:00 Nasal Cannula* 3 32 Physical Exam General: Patient is thin, frail, ill-appearing Skin: Skin in warm, dry with poor skin turgor,. Appropriate color for ethnicity. HEENT: The head is normocephalic and atraumatic. Conjunctivae are clear without exudates or hemorrhage. Sclera is non-icteric. EOM are intact. No signs of nystagmus. Eyelids are normal in appearance without swelling or lesions. Oral mucosa is dry Neck: No JVD. Cardiac: Heart rate and rhythm are normal. No murmurs, gallops, or rubs are auscultated. Respiratory: No signs of respiratory distress. Lung sounds are clear in all lobes bilaterally without rales, rhonchi, or wheezes. Abdominal: Abdomen is soft, without distention, guarding or rigidity. Bowel sounds are present and normoactive in all four quadrants. Extremities: Upper and lower extremities are atraumatic in appearance without deformity or edema. Neurological: The patient is awake, lethargic, minimally responsive to pain. He is not speaking spontaneously. Psychiatric: Appropriate mood and affect. Good judgement and insight. Review of Systems: Unable to obtain due to patient being unresponsive Past Medical History PAST MEDICAL HISTORY: DM, High Lipids, HTN Past Medical History (Other): unspecified heart disease Surgical History: Denies all surgeries Family History Family History: Unknown Social History Smoker: Non-Smoker Alcohol: Denies ETOH Use Drugs: Denies Drug Use Lives In: Other EKG EKG : Comments Sinus rhythm, no STEMI Was a procedure done? 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 Indication: Hypotension Room prepared for procedure: Yes Cable Television Program Director performed hand hygien: Yes Maximal sterile barrier precau: Mask/Eye shield, Sterile gown, Cap, Sterlie gloves, Large sterlie drape Skin Preparation: Chlorhexidine gluconate, Providine iodine, Alcohol Skin preparation completely dr: Yes Insertion site: Right, Internal jugular Central line catheter type: Xri-[id number]-slo dialysis Number of lumens: 3 Central line exchanged over a: Yes Antiseptic ointment applied to: Yes Post Assessment: Chest X-Ray, Proper placement Notes 1st attempt at left IJ failed, 2nd attempt successful GI differential Dx Differential Diagnosis: Other Other Differential Diagnosis Differential diagnosis considered includes but not limited to intracranial hemorrhage, stroke, head injury, seizure, metabolic disturbance, electrolyte imbalance, infection, substance intoxication, psychiatric cause, other systemic illness, other X-Ray, Labs, Meds, VS Vital Signs Date Time Temp Pulse Resp B/P (MAP) Pulse Ox O2 Delivery O2 Flow Rate FiO2 05/15/25 00:15 111 18 104/58 (73) 100 05/15/25 00:00 99 17 79/38 (52) 100 05/14/25 23:45 104 15 77/53 (61) 100 05/14/25 23:30 106 22 75/43 (54) 100 05/14/25 23:22 113 23 70/29 (43) 100 05/14/25 22:52 106 12 86/54 (65) 89 05/14/25 22:48 106 12 98/56 (70) 86 05/14/25 22:30 116 12 127/55 (79) 100 05/14/25 22:15 101 19 86/59 (68) 100 05/14/25 22:01 97.6 62 22 56/32 (40) 72 97.6 05/14/25 22:00 109 28 100 Nasal Cannula* 3 32 05/14/25 22:00 109 28 64/37 (46) 100 05/14/25 21:55 106 Lab Test 05/15/25 00:11 05/14/25 23:20 05/14/25 22:35 05/14/25 22:22 Range/Units Lactic Acid Level 1.9 2.3 *H 0.4-2.0 mmol/L Troponin I High Sensitivity 23 19 </=54 ng/L White Blood Count 34.8 *H 4.4-10.8 10^3/uL Red Blood Count 3.02 L 4.5-5.90 10^6/uL Hemoglobin 8.9 L 13.5-17.5 g/dL Hematocrit 27.6 L 41.0-53.0 % Mean Corpuscular Volume 91.5 80.0-100.0 fL Mean Corpuscular Hemoglobin 29.5 28.0-32.0 pg Mean Corpuscular Hemoglobin Concent 32.3 32.0-36.0 g/dL Red Cell Distribution Width 17.2 H 11.8-14.3 % Platelet Count 80 L 140-450 10^3/uL Mean Platelet Volume 7.0 6.9-10.8 fL Neutrophils (%) (Auto) 37.0-80.0 % Lymphocytes (%) (Auto) 10.0-50.0 % Monocytes (%) (Auto) 0.0-12.0 % Basophils (%) (Auto) 0.0-2.0 % Neutrophils # (Auto) 1.6-8.6 10 ^3/uL Lymphocytes # (Auto) 0.4-5.4 10 ^3/uL Monocytes # (Auto) 0-1.3 10 ^3/uL Differential Total Cells Counted 100.0 100 Neutrophils % (Manual) 94 H 37.0-80.0 Band Neutrophils % (Manual) 4 Lymphocytes % (Manual) 1 L 10.0-50.0 Monocytes % (Manual) 1 0-12 Eosinophils % (Manual) 0 0-7 Basophils % (Manual) 0 0.0-2.0 Metamyelocytes % (manual) 0 Myelocytes % (Manual) 0 Promyelocytes % (Manual) 0 Blast Cells % (Manual) 0 Reactive Lymphocytes 0 Platelet Estimate Decreased Prothrombin Time 16.2 H 9.3-11.8 sec Prothrombin Time INR 1.60 H 0.9-1.15 Sodium Level 137 136-145 mmol/L Potassium Level 3.3 L 3.5-5.1 mmol/L Chloride Level 106 98-107 mmol/L Carbon Dioxide Level 14 L 20-31 mmol/L Anion Gap 17 H 5-15 Blood Urea Nitrogen 67 H 9-23 mg/dL Creatinine 2.33 H 0.700-1.30 mg/dL Glomerular Filtration Rate Calc 27 >90 mL/min BUN/Creatinine Ratio 28.8 H 10.0-20.0 Serum Glucose 192 H 74-106 mg/dL Calcium Level 7.6 L 8.7-10.4 mg/dL Magnesium Level 1.9 1.6-2.6 mg/dL Total Bilirubin 0.3 0.2-1.0 mg/dL Aspartate Amino Transferase (AST) 10 L 13-40 U/L Alanine Aminotransferase (ALT) < 9 7-40 U/L Alkaline Phosphatase 105 46-116 U/L B-Type Natriuretic Peptide 91.45 0-100 pg/mL Total Protein 4.1 L 5.7-8.2 g/dL Albumin 2.0 L 3.2-4.8 g/dL Lipase 16 12-53 U/L Thyroid Stimulating Hormone (TSH) 1.83 0.55-4.78 uIU/mL Plasma/Serum Blood Alcohol < 3.0 <10 mg/dL Blood Gas Specimen Type Arterial Blood Gas Sample Site Left radial Blood Gas Patient Temperature 37.0 Arterial Blood Date Drawn [id number] Arterial Blood pH 7.360 7.350-7.450 Arterial Blood Partial Pressure CO2 23.5 L 35.0-48.0 mmHg Arterial Blood Partial Pressure O2 375.9 *H 83.0-108.0 mmHg Arterial Blood HCO3 13.0 L 21.0-28.0 mmol/L Arterial Blood Oxygen Saturation 99.7 H 94.0-98.0 % Arterial Blood Base Excess -10.9 L -2.0-3.0 mmol/L Arterial Blood Oxyhemoglobin 99.1 H 94.0-98.0 % Arterial Blood Carboxyhemoglobin 0.1 L 0.5-1.5 % Arterial Blood Methemoglobin 0.5 0.0-1.5 % Jackson Test Modified Blood Gas Total Hemoglobin 10.10 L 13.5-17.5 g/dL Blood Gas Liter Flow 15.00 Blood Gas Modality Mask - nrb FiO2 % 100.0 Blood Gas Critical Value Read Back Yes Blood Gas Notified Whom brooks Osman md Blood Gas Notified Time [id number] Blood Gas Notified By meli Holt rrt Current Medications Medications (Trade) Dose Ordered Sig/Willem Route Start Time Stop Time Status Last Admin Sodium Chloride 2,000 ml @ 1,000 mls/hr Q2H ONCE IV 05/14/25 23:30 05/15/25 01:29 DC 05/14/25 23:31 Vancomycin HCl 250 ml @ 250 mls/hr ONCE ONCE IV 05/14/25 23:45 05/15/25 00:44 DC 05/15/25 01:14 Piperacillin Sod/ Tazobactam Sod 100 ml @ 100 mls/hr ONCE ONCE IV 05/14/25 23:45 05/15/25 00:44 DC 05/15/25 00:20 Sodium Chloride 1,000 ml @ 1,000 mls/hr Q1H ONCE IV 05/14/25 23:45 05/15/25 00:44 DC 05/15/25 00:18 Sodium Chloride 1,000 ml @ 130 mls/hr Q7H42M ONCE IV 05/14/25 23:45 05/15/25 07:26 05/15/25 01:45 Time of 1ST Reevaluation: 22:25 Reevaluation 1ST: Unchanged Patient Education/Counseling: Need For Follow Up Family Education/Counseling: No Family Present SEPSIS Sepsis Screen Physician Orders Abg W/ Co-Ox (05/14/25 22:28) Drug Screen (05/14/25 22:38) Covid19 Antigen Marilee (05/14/25 ) Rapid Influenza A&B (05/14/25 22:38) Head Without Contrast (05/14/25 22:38) Chest Xray 1 View (05/14/25 22:38) Blood Culture (05/14/25 22:38) Saline Lock (05/14/25 22:38) Emblem Cutter (05/14/25 ) Straight Cath. (05/14/25 ) Electrocardigram (05/14/25 19:21) Troponin-I Hs (05/14/25 23:38) Stool Occult Blood (05/14/25 22:45) Sodium Chloride 0.9% (05/14/25 23:45) Insert Simms Catheter QSHIFT (05/14/25 23:45) Insert Simms Catheter QSHIFT (05/14/25 23:45) Vital Signs Date Time Temp Pulse Resp B/P (MAP) Pulse Ox O2 Delivery O2 Flow Rate FiO2 05/15/25 00:15 111 18 104/58 (73) 100 05/15/25 00:00 99 17 79/38 (52) 100 05/14/25 23:45 104 15 77/53 (61) 100 05/14/25 23:30 106 22 75/43 (54) 100 05/14/25 23:22 113 23 70/29 (43) 100 05/14/25 22:52 106 12 86/54 (65) 89 05/14/25 22:48 106 12 98/56 (70) 86 05/14/25 22:30 116 12 127/55 (79) 100 05/14/25 22:15 101 19 86/59 (68) 100 05/14/25 22:01 97.6 62 22 56/32 (40) 72 97.6 05/14/25 22:00 109 28 100 Nasal Cannula* 3 32 05/14/25 22:00 109 28 64/37 (46) 100 05/14/25 21:55 106 Laboratory Tests Test 05/14/25 22:35 05/15/25 00:11 Lactic Acid Level 2.3 mmol/L (0.4-2.0) *H 1.9 mmol/L (0.4-2.0) White Blood Count 34.8 10^3/uL (4.4-10.8) *H Medications Medications Dose Ordered Sig/Willem Route Start Time Stop Time Status Last Admin Dose Admin Piperacillin Sod/ Tazobactam Sod 100 ml @ 100 mls/hr ONCE ONCE IV 05/14/25 23:45 05/15/25 00:44 DC 05/15/25 00:20 Sodium Chloride 1,000 ml @ 130 mls/hr Q7H42M ONCE IV 05/14/25 23:45 05/15/25 07:26 05/15/25 01:45 Sodium Chloride 1,000 ml @ 1,000 mls/hr Q1H ONCE IV 05/14/25 23:45 05/15/25 00:44 DC 05/15/25 00:18 Sodium Chloride 2,000 ml @ 1,000 mls/hr Q2H ONCE IV 05/14/25 23:30 05/15/25 01:29 DC 05/14/25 23:31 Vancomycin HCl 250 ml @ 250 mls/hr ONCE ONCE IV 05/14/25 23:45 05/15/25 00:44 DC 05/15/25 01:14 Departure 1 Departure Time of Disposition: 23:47 Impression: Primary Impression: Sepsis Additional Impressions: Pneumonia Altered mental status Anemia Hypotension Renal failure Disposition: ADMITTED INPATIENT Condition: Guarded Comments 84-year-old male this in the emergency department with a EMS with altered mental status. Patient was found to be hypotensive on arrival IV fluids, labs, imaging ordered Sepsis protocol initiated in the ED Patient admitted to hospitalist service for further treatment, evaluation and monitoring. Extensive evaluation was performed in attempt to identify or rule out: (See differential diagnosis section) The following tests were ordered, and results were reviewed by me and discussed with patient: (See diagnostic results section) The following test were independently interpreted by me: EKG I reviewed and agreed with the following test results read by other providers: Chest x-ray I reviewed the following notes from the pt's past medical encounters: Hospitalization January 2025 Additional information was gathered from interviewing the following independent historians: N/A Discussion of management or test interpretation with external physician/other qualified health child care group leader: N/A Decision regarding hospitalization or escalation of hospital level of care: Risk and benefits of admission for further treatment of patient's condition was considered. Due to patient's current clinical condition, high risk of decline and poor outcome if discharged and need for further inpatient management and monitoring, patient will be admitted to the hospital. Critical Care Note Critical Care Time?: Yes (35 min-critical care time only) Critical care comment: Due to a high probability of clinically significant, life threatening deterioration, the patient required my highest level of preparedness to intervene emergently and I personally spent this critical care time directly and personally managing the patient. This critical care time included obtaining a history; examining the patient; pulse oximetry; ordering and review of studies; arranging urgent treatment with development of a management plan; evaluation of patient's response to treatment; frequent reassessment; and, discussions with other providers. This critical care time was performed to assess and manage the high probability of imminent, life-threatening deterioration that could result in multi-organ failure. It was exclusive of separately billable procedures and treating other patients and teaching time. Please see my other sections and the rest of the note for further information on patient assessment and treatment. Stability Stability form required: No I personally scribed for MAUREEN OSMAN MD ([email or web address]) on 05/14/25 at 22:09. Electronically submitted by Myrtle Mejia ([email or web address]). I personally scribed for MAUREEN OSMAN MD ([email or web address]) on 05/14/25 at 22:40. Electronically submitted by Myrtle Mejia ([email or web address]). MAUREEN OSMAN MD May 14, 2025 22:09
[2025-05-14 22:34] LABS: Base Excess -10.9 mmol/L (-2.0-3.0)
[2025-05-14 22:59] LABS: Hematocrit 27.6 % (41.0-53.0); Hemoglobin 8.9 g/dL (13.5-17.5); Mean Corpuscular Hemoglobin 29.5 pg (28.0-32.0); Mean Corpuscular Volume 91.5 fL (80.0-100.0)
[2025-05-14 23:15] LABS: INR 1.6 (0.9-1.15); Prothrombin Time 16.2 sec (9.3-11.8)
--- NOTE | 2025-05-14 23:28 | DVH ---
CHEST RADIOGRAPH Indication: AMS Technique: Single frontal view of the chest was obtained Comparison: XY CHEST PORTABLE on DOS: 01/04/25 FINDINGS/IMPRESSION: Hazy opacity within the left lower lung. Unremarkable appearance of the cardiomediastinal silhouette. No pneumothorax. Possible small left pleural effusion. No acute osseous abnormality. Left-sided du al-chamber pacemaker.
[2025-05-14] MEDS: SODIUM CHLORIDE 0.9% 2,000 ML IV ONE (23:31)
--- NOTE | 2025-05-14 23:31 | DVH ---
EXAM: CT HEAD WITHOUT CONTRAST INDICATION: AMS TECHNIQUE: CT of the head without intravenous contrast. Radiation Dose : 1. Head: CT Dose: CTDI volume is 51.75 mGy. Dose-length product is 916.48 mGy*cm The dose indicators for CT are the volume Computed Tomography (CT) Dose Index (CTDIvol) and the Dose Length Product (DLP), and are measured in units of mGy and mGy-cm, respectively. These indicators are not patient dose, but values generated from the CT scanner acquisition factors. The report includes radiation exposure data for exposures received during this examination. COMPARISON: None FINDINGS: There is no evidence of acute intracranial hemorrhage, extra-axial collection, mass effect, midline s hift, herniation or hydrocephalus. 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 Increased prominence of the ventricles, sulci and cisterns is consistent with the sequelae of atrophi c cortical volume loss.. The musa-white differentiation is intact. Moderate diffuse confluent periventricular and subcortical white matter hypoattenuation is nonspecifi c but may be related to small vessel ischemic disease. Right maxillary mucosal sinus disease. The remaining visualized paranasal sinuses and mastoid air ce lls are clear. The surrounding soft tissues and osseous structures are unremarkable. IMPRESSION: 1. No acute intracranial abnormality. 2. 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 Radiation optimization: All CT scans at this facility use at least one of these dose optimization germán hniques: automated exposure control mA and/or kV adjustment per patient size (includes targeted exam s where dose is matched to clinical indication) or iterative reconstruction.
[2025-05-14 23:39] LABS: Alkaline Phosphatase 105 U/L (46-116); Anion Gap 17 (5-15); BUN/Creatinine Ratio 28.8 (10.0-20.0); Chloride 106 mmol/L (98-107); Magnesium 1.9 mg/dL (1.6-2.6); Sodium 137 mmol/L (136-145)
[2025-05-14 23:47] LABS: Total Cells Counted 100.0 (100)
[2025-05-14 23:54] LABS: Alanine Aminotransferase < 9 U/L (7-40); Albumin 2.0 g/dL (3.2-4.8); Bilirubin, Total 0.3 mg/dL (0.2-1.0); Blood Urea Nitrogen 67 mg/dL (9-23); Calcium 7.6 mg/dL (8.7-10.4); Carbon Dioxide 14 mmol/L (20-31); Glucose 192 mg/dL (74-106); Potassium 3.3 mmol/L (3.5-5.1); Total Protein 4.1 g/dL (5.7-8.2)
[2025-05-14 23:57] LABS: Lactic Acid w/Reflex 2.3 mmol/L (0.4-2.0)
[2025-05-15] VITALS (50 sets, daily range): BP systolic 56–144; BP diastolic 33–88; PULSE 58–116; RESP 9–26; TEMP 97.4–98.4; O2SAT 94–100
[2025-05-15] MEDS: SODIUM CHLORIDE 0.9% 1,000 ML IV ONE ×2 (00:18→01:45)
[2025-05-15] MEDS: PIPERACILLIN-TAZOB 3.375GM 100 ML IV ONE (00:20)
[2025-05-15 00:30] LABS: Lipase 16 U/L (12-53)
[2025-05-15] MEDS ORDERED: NITROGLYCERIN 0.4 MG SL TAB SL PRN (00:30)
[2025-05-15] MEDS ORDERED: MORPHINE SULFATE INJ 2 MG/ml SYRG IV PRN (00:30)
[2025-05-15] MEDS ORDERED: VANCOMYCIN PER PHARMACY 0 MG IV SCH (00:30)
[2025-05-15] MEDS ORDERED: ACETAMINOPHEN 325 MG TAB PO PRN (00:30)
[2025-05-15] MEDS ORDERED: ONDANSETRON HCL 4 MG/2 ML VIAL IV PRN (00:30)
--- NOTE | 2025-05-15 00:55 | ECG ---
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
[2025-05-15] MEDS: SODIUM BICARB 8.4% 50Meq/50ml SYR Vial IV ONE (01:13)
[2025-05-15] MEDS: VANCOMYCIN 1GM/200ML PM 250 ML IV ONE (01:14)
[2025-05-15] MEDS: CALCIUM GLUC 1,000mg/50ml-NS 50 ML IV ONE (01:14)
[2025-05-15 01:35] LABS: Urine Protein, UAD 1+ (Negative); Urine WBC Clumps PRESENT /hpf (None Seen)
[2025-05-15] MEDS: ALBUMIN 25% 100 ML IV ONE (01:45)
[2025-05-15] MEDS: PANTOPRAZOLE 40 MG/10 ML VIAL INJ IV ONE (01:53)
[2025-05-15 02:25] LABS: Benzodiazephine Screen, Urine Neg (NEGATIVE)
[2025-05-15 03:00] LABS: Amphetamine Screen, Urine Neg (NEGATIVE); Barbiturate Scree,Urine Neg (NEGATIVE); Cannabinoid Screen, Urine Neg (NEGATIVE); Cocaine Screen, Urine Neg (NEGATIVE); Opiate Scree,Urine Pos (NEGATIVE); Phencyclidine Screen, Urine Neg (NEGATIVE)
[2025-05-15] MEDS: POTASSIUM CHL 20MEQ/100ML 100 ML IV ONE (03:00)
--- NOTE | 2025-05-15 03:54 | DVHHP2 ---
History of Present Illness Reason for Visit: GI bleed History of Present Illness 84-year-old male presents for evaluation of coffee-ground emesis. Patient resides at a [facility] where he had a coffee-ground emesis episode. Patient is currently lethargic and not answering questions. Patient was noted to be hypotensive in the 50s and hypoxic on arrival. Past Medical History Hypertension, dyslipidemia and diabetes mellitus Past Surgical History None Family History Noncontributory Smoke: No ALCOHOL: none Drugs: None Lives: [facility] Review of Systems Review of Systems Review of systems are limited due to the patient's altered mental status. Allergies: Coded Allergies: NO KNOWN ALLERGIES (Unverified , 01/04/25) Medications Current Medications Medications Dose Ordered Sig/Willem Route Start Time Stop Time Status Last Admin Dose Admin Vancomycin HCl 0 ml @ 0 mls/hr UD IV 05/15/25 00:30 UNV Piperacillin Sod/ Tazobactam Sod 100 ml @ 25 mls/hr Q8HR IV 05/15/25 06:00 Pantoprazole Sodium 40 mg BID IV 05/15/25 10:00 Ondansetron HCl 4 mg Q4HP PRN IV 05/15/25 00:30 Acetaminophen 650 mg Q6HP PRN PO 05/15/25 00:30 Nitroglycerin 0.4 mg Q5MINP PRN SL 05/15/25 00:30 Morphine Sulfate 2 mg Q30M PRN IV 05/15/25 00:30 Exam Vital Signs Vital Signs Date Time Temp Pulse Resp B/P (MAP) Pulse Ox O2 Delivery O2 Flow Rate FiO2 05/15/25 02:24 97.8 109 16 90/58 (69) 100 97.8 05/15/25 02:24 Nasal Cannula* 3 32 Exam Gen: 84-year-old male in mild distress Skin: Warm, dry, normal color and texture, no rash. HEENT: Normocephalic atraumatic, mucous membranes moist and pink. Neck: Cervical and supraclavicular nodes normal without enlargement, trachea is midline, thyroid gland is normal without masses. Pulmonary: Clear to auscultation and percussion bilaterally. Cardiac: Regular rate and rhythm. No murmur Abdomen: Soft, nontender, nondistended, bowel sounds present all 4 quadrants, no guarding, no rigidity, no organomegaly. Extremities: No cyanosis, clubbing, no edema Neuro: Cranial nerves II through XII grossly intact, normal affect and speech, no focal motor deficits. Labs/Xrays ORDERING PHYSICIAN: MAUREEN OSMAN MD PROCEDURE(s): CXR1 - CHEST XRAY 1 VIEW REASON: [facility] ORDER NUMBER(s): [id number], ACCESSION NUMBER(s): [id number] CHEST RADIOGRAPH Indication: AMS Technique: Single frontal view of the chest was obtained Comparison: XY CHEST PORTABLE on DOS: 01/04/25 FINDINGS/IMPRESSION: Hazy opacity within the left lower lung. Unremarkable appearance of the cardiomediastinal silhouette. No pneumothorax. Possible small left pleural effusion. No acute osseous abnormality. Left-sided dual-chamber pacemaker. RING PHYSICIAN: MAUREEN OSMAN MD PROCEDURE(s): HWOCT - HEAD WITHOUT CONTRAST REASON: [facility] ORDER NUMBER(s): [id number], ACCESSION NUMBER(s): [id number] EXAM: CT HEAD WITHOUT CONTRAST INDICATION: AMS TECHNIQUE: CT of the head without intravenous contrast. Radiation Dose : 1. Head: CT Dose: CTDI volume is 51.75 mGy. Dose-length product is 916.48 mGy*cm The dose indicators for CT are the volume Computed Tomography (CT) Dose Index (CTDIvol) and the Dose Length Product (DLP), and are measured in units of mGy and mGy-cm, respectively. These indicators are not patient dose, but values generated from the CT scanner acquisition factors. The report includes radiation exposure data for exposures received during this examination. COMPARISON: None FINDINGS: There is no evidence of acute intracranial hemorrhage, extra-axial collection, mass effect, midline shift, herniation or hydrocephalus. 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 Increased prominence of the ventricles, sulci and cisterns is consistent with the sequelae of atrophic cortical volume loss.. The musa-white differentiation is intact. Moderate diffuse confluent periventricular and subcortical white matter hypoattenuation is nonspecific but may be related to small vessel ischemic disease. Right maxillary mucosal sinus disease. The remaining visualized paranasal sinuses and mastoid air cells are clear. The surrounding soft tissues and osseous structures are unremarkable. IMPRESSION: 1. No acute intracranial abnormality. 2. 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 Radiation optimization: All CT scans at this facility use at least one of these dose optimization techniques: automated exposure control mA and/or kV adjustm ent per patient size (includes targeted exams where dose is matched to clinical indication) or iterative reconstruction. Labs Test 05/15/25 01:37 05/15/25 01:00 05/15/25 00:11 05/14/25 22:35 Range/Units Troponin I High Sensitivity 25 </=54 ng/L Urine Color Dark-brown Yellow Urine Clarity Ex.turbid Clear Urine pH 5.5 5.0-9.0 Urine Specific [place] 1.011 1.001-1.035 Urine Protein 1+ H Negative Urine Ketones Negative Negative Urine Blood 3+ H Negative /uL Urine Nitrite Negative Negative Urine Bilirubin Negative Negative Urine Urobilinogen Normal Negative mg/dL Urine Leukocyte Esterase 3+ Negative /uL Urine RBC 84 0 - 3 /hpf Urine WBC Clumps Present None Seen /hpf Urine Microscopic WBC 1472 H 0-3 /HPF Urine Squamous Epithelial Cells Few <5 /hpf Urine Bacteria Many H None Seen /hpf Urine Glucose Normal Normal mg/dL Urine Opiates Screen Pos NEGATIVE Urine Fentanyl Screen Neg NEGATIVE Urine Barbiturates Screen Neg NEGATIVE Urine Phencyclidine Screen Neg NEGATIVE Urine Amphetamines Screen Neg NEGATIVE Urine Benzodiazepines Screen Neg NEGATIVE Urine Cocaine Screen Neg NEGATIVE Urine Cannabinoids Screen Neg NEGATIVE Lactic Acid Level 1.9 0.4-2.0 mmol/L White Blood Count 34.8 *H 4.4-10.8 10^3/uL Red Blood Count 3.02 L 4.5-5.90 10^6/uL Hemoglobin 8.9 L 13.5-17.5 g/dL Hematocrit 27.6 L 41.0-53.0 % Mean Corpuscular Volume 91.5 80.0-100.0 fL Mean Corpuscular Hemoglobin 29.5 28.0-32.0 pg Mean Corpuscular Hemoglobin Concent 32.3 32.0-36.0 g/dL Red Cell Distribution Width 17.2 H 11.8-14.3 % Platelet Count 80 L 140-450 10^3/uL Mean Platelet Volume 7.0 6.9-10.8 fL Neutrophils (%) (Auto) 37.0-80.0 % Lymphocytes (%) (Auto) 10.0-50.0 % Monocytes (%) (Auto) 0.0-12.0 % Basophils (%) (Auto) 0.0-2.0 % Neutrophils # (Auto) 1.6-8.6 10 ^3/uL Lymphocytes # (Auto) 0.4-5.4 10 ^3/uL Monocytes # (Auto) 0-1.3 10 ^3/uL Differential Total Cells Counted 100.0 100 Neutrophils % (Manual) 94 H 37.0-80.0 Band Neutrophils % (Manual) 4 Lymphocytes % (Manual) 1 L 10.0-50.0 Monocytes % (Manual) 1 0-12 Eosinophils % (Manual) 0 0-7 Basophils % (Manual) 0 0.0-2.0 Metamyelocytes % (manual) 0 Myelocytes % (Manual) 0 Promyelocytes % (Manual) 0 Blast Cells % (Manual) 0 Reactive Lymphocytes 0 Platelet Estimate Decreased Prothrombin Time 16.2 H 9.3-11.8 sec Prothrombin Time INR 1.60 H 0.9-1.15 Sodium Level 137 136-145 mmol/L Potassium Level 3.3 L 3.5-5.1 mmol/L Chloride Level 106 98-107 mmol/L Carbon Dioxide Level 14 L 20-31 mmol/L Anion Gap 17 H 5-15 Blood Urea Nitrogen 67 H 9-23 mg/dL Creatinine 2.33 H 0.700-1.30 mg/dL Glomerular Filtration Rate Calc 27 >90 mL/min BUN/Creatinine Ratio 28.8 H 10.0-20.0 Serum Glucose 192 H 74-106 mg/dL Calcium Level 7.6 L 8.7-10.4 mg/dL Magnesium Level 1.9 1.6-2.6 mg/dL Total Bilirubin 0.3 0.2-1.0 mg/dL Aspartate Amino Transferase (AST) 10 L 13-40 U/L Alanine Aminotransferase (ALT) < 9 7-40 U/L Alkaline Phosphatase 105 46-116 U/L B-Type Natriuretic Peptide 91.45 0-100 pg/mL Total Protein 4.1 L 5.7-8.2 g/dL Albumin 2.0 L 3.2-4.8 g/dL Lipase 16 12-53 U/L Thyroid Stimulating Hormone (TSH) 1.83 0.55-4.78 uIU/mL Plasma/Serum Blood Alcohol < 3.0 <10 mg/dL Test 05/14/25 22:22 Range/Units Blood Gas Specimen Type Arterial Blood Gas Sample Site Left radial Blood Gas Patient Temperature 37.0 Arterial Blood Date Drawn [id number] Arterial Blood pH 7.360 7.350-7.450 Arterial Blood Partial Pressure CO2 23.5 L 35.0-48.0 mmHg Arterial Blood Partial Pressure O2 375.9 *H 83.0-108.0 mmHg Arterial Blood HCO3 13.0 L 21.0-28.0 mmol/L Arterial Blood Oxygen Saturation 99.7 H 94.0-98.0 % Arterial Blood Base Excess -10.9 L -2.0-3.0 mmol/L Arterial Blood Oxyhemoglobin 99.1 H 94.0-98.0 % Arterial Blood Carboxyhemoglobin 0.1 L 0.5-1.5 % Arterial Blood Methemoglobin 0.5 0.0-1.5 % Jackson Test Modified Blood Gas Total Hemoglobin 10.10 L 13.5-17.5 g/dL Blood Gas Liter Flow 15.00 Blood Gas Modality Mask - nrb FiO2 % 100.0 Blood Gas Critical Value Read Back Yes Blood Gas Notified Whom brooks Osman md Blood Gas Notified Time [id number] Blood Gas Notified By meli Holt rrt SEPSIS Sepsis Screen Date sepsis recognized/suspect: May 14, 2025 Time Sepsis recognized/suspect: 2144 Recent Procedure: No On Antibiotic Therapy: No Respiratory Rate >20: Yes Heart Rate >90: No Temp<36 C (96.8 F) or >38.3 C: No SBP <90 or MAP <65 mmHG: Yes New Acute Mental Status Change: Yes Is the patient on CPAP, BIPAP,: No Physician Orders Abg W/ Co-Ox (05/14/25 22:28) Covid19 Antigen Marilee (05/14/25 ) Rapid Influenza A&B (05/14/25 22:38) Head Without Contrast (05/14/25 22:38) Chest Xray 1 View (05/14/25 22:38) Blood Culture (05/14/25 22:38) Saline Lock (05/14/25 22:38) Atm Technician (05/14/25 ) Straight Cath. (05/14/25 ) Electrocardigram (05/14/25 19:21) Stool Occult Blood (05/14/25 22:45) Sodium Chloride 0.9% (05/14/25 23:45) Ct Ab Pel Wo Con-No Oral Or Iv (05/15/25:) Vancomycin Per Pharmacy (05/15/25 00:30) Piperacillin-Tazob 3.375gm (Zosyn 3.375g (05/15/25 06:00) Pantoprazole (Protonix) (05/15/25 10:00) Gastric Occult Blood (05/15/25) Admit (05/15/25) Ondansetron Hcl (Zofran) (05/15/25:30) Complete Blood Count (05/15/25 04:00) Comprehensive Metabolic Panel (05/15/25 04:00) Npo (Nothing By Mouth) Diet (05/15/25 Breakfast) Condition: Serious (05/15/25) Acetaminophen Tablet (Tylenol Tablet) (05/15/25 00:30) Bedrest With Bathroom Privileg (05/15/25) Nitroglycerin Sublingual (Ntrostat Subli (05/15/25) Morphine Sulfate Injection (05/15/25) Stat Ekg For Chest Pain (05/15/25) Notify Md Of Changes From Base (05/15/25) Senior Accounting Analyst For 24 Hours (05/15/25) Emergency Dysrhythmia Protocol (05/15/25) Rhythm Strips Once Every Shift (05/15/25) Oxygen By Nasal Cannula (05/15/25) Vital Signs Date Time Temp Pulse Resp B/P (MAP) Pulse Ox O2 Delivery O2 Flow Rate FiO2 05/15/25 02:24 97.8 109 16 90/58 (69) 100 97.8 05/15/25 02:24 109 16 100 Nasal Cannula* 3 32 05/15/25 01:00 103 13 81/54 (63) 100 05/15/25 00:45 110 16 106/58 (74) 100 05/15/25 00:30 112 16 85/52 (63) 100 05/15/25 00:15 111 18 104/58 (73) 100 05/15/25 00:00 99 17 79/38 (52) 100 05/14/25 23:45 104 15 77/53 (61) 100 05/14/25 23:30 106 22 75/43 (54) 100 05/14/25 23:22 113 23 70/29 (43) 100 05/14/25 22:52 106 12 86/54 (65) 89 05/14/25 22:48 106 12 98/56 (70) 86 05/14/25 22:30 116 12 127/55 (79) 100 05/14/25 22:15 101 19 86/59 (68) 100 05/14/25 22:01 97.6 62 22 56/32 (40) 72 97.6 05/14/25 22:00 109 28 100 Nasal Cannula* 3 32 05/14/25 22:00 109 28 64/37 (46) 100 05/14/25 21:55 106 Laboratory Tests Test 05/14/25 22:35 05/15/25 00:11 Lactic Acid Level 2.3 mmol/L (0.4-2.0) *H 1.9 mmol/L (0.4-2.0) White Blood Count 34.8 10^3/uL (4.4-10.8) *H Medications Medications Dose Ordered Sig/Willem Route Start Time Stop Time Status Last Admin Dose Admin Albumin Human 100 ml @ 100 mls/hr ONCE ONCE IV 05/15/25 00:30 05/15/25 01:29 DC 05/15/25 01:45 100 MLS/HR Calcium Gluconate/ Sodium Chloride 50 ml @ 100 mls/hr ONCE ONCE IV 05/15/25 00:30 05/15/25 00:59 DC 05/15/25 01:14 100 MLS/HR Pantoprazole Sodium 40 mg ONCE ONCE IV 05/15/25 00:30 05/15/25 00:41 DC 05/15/25 01:53 40 MG Piperacillin Sod/ Tazobactam Sod 100 ml @ 100 mls/hr ONCE ONCE IV 05/14/25 23:45 05/15/25 00:44 DC 05/15/25 00:20 100 MLS/HR Potassium Chloride 100 ml @ 50 mls/hr ONCE ONCE IV 05/15/25 00:30 05/15/25 02:29 DC 05/15/25 03:00 50 MLS/HR Sodium Bicarbonate 50 ml ONCE ONCE IV 05/15/25 00:30 05/15/25 00:41 DC 05/15/25 01:13 50 ML Sodium Chloride 1,000 ml @ 130 mls/hr Q7H42M ONCE IV 05/14/25 23:45 05/15/25 07:26 05/15/25 01:45 130 MLS/HR Sodium Chloride 1,000 ml @ 1,000 mls/hr Q1H ONCE IV 05/14/25 23:45 05/15/25 00:44 DC 05/15/25 00:18 1,000 MLS/HR Sodium Chloride 2,000 ml @ 1,000 mls/hr Q2H ONCE IV 05/14/25 23:30 05/15/25 01:29 DC 05/14/25 23:31 1,000 MLS/HR Vancomycin HCl 250 ml @ 250 mls/hr ONCE ONCE IV 05/14/25 23:45 05/15/25 00:44 DC 05/15/25 01:14 250 MLS/HR Assessment/Plan Assessment/Plan Assessment Metabolic encephalopathy Sepsis ? GI bleed Community-acquired pneumonia Urinary tract infection Dementia Electrolyte imbalance Severe protein malnutrition Cachexia Acute kidney injury Plan Admit the patient to [facility] to the hospitalist Maintenance IV fluids Zosyn/vancomycin Protonix IV b.i.d. Repeat hemoglobin Continue treatment per orders Total critical care time excluding procedures performed this 50 minutes. Plan discussed with: Other My Orders Orders - ISATU MANN Procedure Category Date Status Time Ct Ab Pel Wo Con-No CT 05/15/25 Logged Oral Or Iv 00:26 Vancomycin Per [facility] 05/15/25 Pending Pharmacy 00:30 Piperacillin-Tazob [facility] 05/15/25 In Process 3.375gm (Zosyn 3.375g 06:00 Pantoprazole [facility] 05/15/25 In Process (Protonix) 10:00 Gastric Occult Blood LAB 05/15/25 Logged 00:26 Admit ADMIT 05/15/25 Transmitted 00:26 Ondansetron Hcl [facility] 05/15/25 In Process (Zofran) 00:30 Complete Blood Count LAB 05/15/25 Logged 04:00 Comprehensive LAB 05/15/25 Logged Metabolic Panel 04:00 Npo (Nothing By DIET 05/15/25 Transmitted Mouth) Diet Breakfast Condition: Serious [facility] 05/15/25 In Process 00:26 Acetaminophen Tablet [facility] 05/15/25 In Process (Tylenol Tablet) 00:30 Bedrest With Bathroom [facility] 05/15/25 In Process Privileg 00:26 Nitroglycerin [facility] 05/15/25 In Process Sublingual (Ntrostat 00:30 Morphine Sulfate [facility] 05/15/25 In Process Injection 00:30 Stat Ekg For Chest [facility] 05/15/25 In Process Pain 00:26 Notify Md Of Changes [facility] 05/15/25 In Process From Base 00:26 Senior Accounting Analyst For [facility] 05/15/25 In Process 24 Hours 00:26 Emergency Dysrhythmia [facility] 05/15/25 In Process Protocol 00:26 Rhythm Strips Once [facility] 05/15/25 In Process Every Shift 00:26 Oxygen By Nasal RT 05/15/25 Transmitted Cannula 00:26 Date of Service: May 14, 2025 Billing Provider: ISATU MANN Common Visit Codes: [id number] CARE 30-74 MIN ISATU MANN May 15, 2025 03:54
--- NOTE | 2025-05-15 04:40 | DVH ---
Exam: CT CT AB PEL WO CON-NO ORAL OR IV History: abd. pain Comparison Study: None Technique: Multidetector spiral CT of the abdomen and pelvis was performed from lung bases to pubic s ymphysis. Imaging was performed without intravenous contrast. Coronal and sagittal multiplanar reform ats were obtained from the axial data set by the technologist. Radiation Dose : 1. Abdomen/Pelvis: CTDIvol 9.3 mGy, DLP 594.1 mGy*cm. Findings: Evaluation of vasculature and solid organs is limited due to lack of intravenous contrast use. Lung Bases: Bilateral lower lobe consolidation. Visualized portions of the heart and pericardium are unremarkable. Liver: The liver is normal in size. No focal lesions. Gallbladder and Biliary Tree: The gallbladder is unremarkable. No intrahepatic or extrahepatic biliar y ductal dilatation. Spleen: Unremarkable Pancreas: The pancreas is grossly unremarkable. Adrenal Glands: Unremarkable Kidneys: Mild bilateral hydronephrosis. No intrarenal stones or ureteral stones. GI tract: The stomach is grossly normal in appearance. No evidence of small bowel wall thickening or abnormal dilatation to suggest bowel obstruction. There is severe mucosal thickening of the transvers e colon, descending, sigmoid colon and rectum with pericolonic fat stranding. Stool noted outside the rectal vault. No acute appendicitis. Peritoneum/mesentery/retroperitoneum. No evidence of free intraperitoneal air. No ascites. No evidenc e of suspicious lymphadenopathy. Abdominal Wall: Unremarkable. Vasculature: The visualized abdominal aorta is normal in size and caliber. Evaluation of abdominal a nd pelvic vessels is limited due to lack of intravenous contrast. There are atherosclerotic calcific ations in the aorta. Urinary Bladder: Urinary bladder distended despite the presence of a Simms catheter. Air in the urin geovanni bladder which could be related to the presence of the Simms catheter. Pelvic Organs: Unremarkable. Musculoskeletal: Age-indeterminate T11, L2 compression deformities. Bilateral hip joint space narrowi ng and osteophytes. IMPRESSION: 1. Severe delgado colitis. 2. Bilateral lower lobe consolidations which may reflect pneumonia or sequelae of aspiration. 3. Mild bilateral hydroureteronephrosis without obstructing stone. Distended urinary bladder despite the presence of a Simms catheter. Air in the urinary bladder which may be related to the presence o f the Simms catheter however infection is not excluded.
[2025-05-15] MEDS: PIPERACILLIN-TAZOB 3.375GM 100 ML IV SCH (05:54)
[2025-05-15 06:23] LABS: Hematocrit 25.3 % (41.0-53.0)
[2025-05-15 06:32] LABS: Hemoglobin 8.5 g/dL (13.5-17.5); Mean Corpuscular Hemoglobin 30.0 pg (28.0-32.0); Mean Corpuscular Volume 89.7 fL (80.0-100.0)
[2025-05-15 06:41] LABS: Alkaline Phosphatase 84 U/L (46-116); Anion Gap 13 (5-15); BUN/Creatinine Ratio 32.4 (10.0-20.0); Sodium 141 mmol/L (136-145)
[2025-05-15 06:42] LABS: Bilirubin, Total 0.6 mg/dL (0.2-1.0)
[2025-05-15 06:45] LABS: Alanine Aminotransferase < 9 U/L (7-40); Albumin 2.4 g/dL (3.2-4.8); Blood Urea Nitrogen 67 mg/dL (9-23); Calcium 8.1 mg/dL (8.7-10.4); Carbon Dioxide 18 mmol/L (20-31); Chloride 110 mmol/L (98-107); Glucose 160 mg/dL (74-106); Potassium 3.4 mmol/L (3.5-5.1); Total Protein 4.2 g/dL (5.7-8.2)
[2025-05-15 08:36] LABS: Total Cells Counted 100.0 (100)
[2025-05-15 08:37] LABS: Anisocytosis Slight
[2025-05-15 08:56] LABS: Nucleated Red Blood Cells % 0.0 %
--- NOTE | 2025-05-15 09:28 | DVHINCON2 ---
Date Seen: May 15, 2025 History of Present Illness Spoke to family Yashira daughter and grandson Rick at the bedside stated that they want to continue with the DNR DNI status. Family does not want any aggressive measures. States that they do not want any vasopressors and just wants the patient comfortable. Understands that the patient is dying and prognosis is poor. Family is requesting for pain medications for the patient's pain due to the sacral wound. Patient is awake but not alert and oriented. Did explain fully with DNR DNI status is and patient's family still wants to continue with it. Family History: Patient reports no known family medical history. Allergies: Coded Allergies: NO KNOWN ALLERGIES (Unverified , 01/04/25) Home Meds Active Scripts Ciprofloxacin Hcl (Cipro) 500 Mg Tab, 1 TAB PO BID, #20 TAB Prov:FAUSTINO SIBLEY MD 01/07/25 Current Medications Current Medications Medications (Trade) Dose Ordered Sig/Willem Route PRN Reason Start Time Stop Time Status Last Admin Vancomycin HCl 0 ml @ 0 mls/hr UD IV 05/15/25 00:30 Piperacillin Sod/ Tazobactam Sod 100 ml @ 25 mls/hr Q8HR IV 05/15/25 06:00 05/15/25 05:54 Pantoprazole Sodium (Protonix) 40 mg BID IV 05/15/25 10:00 Ondansetron HCl (Zofran) 4 mg Q4HP PRN IV NAUSEA / VOMITING 05/15/25 00:30 Acetaminophen (Tylenol Tablet) 650 mg Q6HP PRN PO PAIN SCALE 1-3 OR TEMP>100.4 05/15/25 00:30 Nitroglycerin (Ntrostat Sublingual) 0.4 mg Q5MINP PRN SL FOR CHEST PAIN 05/15/25 00:30 Morphine Sulfate 2 mg Q30M PRN IV FOR CHEST PAIN 05/15/25 00:30 Vital Signs Vital Signs Date Time Temp Pulse Resp B/P (MAP) Pulse Ox O2 Delivery O2 Flow Rate FiO2 05/15/25 07:46 109 18 87/49 (62) 100 05/15/25 02:24 97.8 97.8 05/15/25 02:24 Nasal Cannula* 3 32 Labs/Diagnostic Data Labs Test 05/15/25 05:45 05/15/25 04:30 05/15/25 01:37 05/15/25 01:00 Range/Units White Blood Count 23.8 #H 4.4-10.8 10^3/uL Red Blood Count 2.82 L 4.5-5.90 10^6/uL Hemoglobin 8.5 L 13.5-17.5 g/dL Hematocrit 25.3 L 41.0-53.0 % Mean Corpuscular Volume 89.7 80.0-100.0 fL Mean Corpuscular Hemoglobin 30.0 28.0-32.0 pg Mean Corpuscular Hemoglobin Concent 33.5 32.0-36.0 g/dL Red Cell Distribution Width 16.4 H 11.8-14.3 % Platelet Count 69 L 140-450 10^3/uL Mean Platelet Volume 6.6 L 6.9-10.8 fL Neutrophils (%) (Auto) 93.9 H 37.0-80.0 % Lymphocytes (%) (Auto) 3.6 L 10.0-50.0 % Monocytes (%) (Auto) 2.4 0.0-12.0 % Eosinophils (%) (Auto) 0.0 0.0-7.0 % Basophils (%) (Auto) 0.1 0.0-2.0 % Neutrophils # (Auto) 22.4 H 1.6-8.6 10 ^3/uL Lymphocytes # (Auto) 0.9 0.4-5.4 10 ^3/uL Monocytes # (Auto) 0.6 0-1.3 10 ^3/uL Eosinophils # (Auto) 0 0-0.8 10 ^3/uL Basophils # (Auto) 0 0-0.2 10 ^3/uL Differential Total Cells Counted 100.0 100 Neutrophils % (Manual) 88 H 37.0-80.0 Band Neutrophils % (Manual) 5 Lymphocytes % (Manual) 4 L 10.0-50.0 Monocytes % (Manual) 3 0-12 Eosinophils % (Manual) 0 0-7 Basophils % (Manual) 0 0.0-2.0 Metamyelocytes % (manual) 0 Myelocytes % (Manual) 0 Promyelocytes % (Manual) 0 Blast Cells % (Manual) 0 Nucleated Red Blood Cells 0.0 % Reactive Lymphocytes 0 Platelet Estimate Decreased Anisocytosis (manual) Slight Sodium Level 141 136-145 mmol/L Potassium Level 3.4 L 3.5-5.1 mmol/L Chloride Level 110 H 98-107 mmol/L Carbon Dioxide Level 18 L 20-31 mmol/L Anion Gap 13 5-15 Blood Urea Nitrogen 67 H 9-23 mg/dL Creatinine 2.07 H 0.700-1.30 mg/dL Glomerular Filtration Rate Calc 31 >90 mL/min BUN/Creatinine Ratio 32.4 H 10.0-20.0 Serum Glucose 160 H 74-106 mg/dL Calcium Level 8.1 L 8.7-10.4 mg/dL Total Bilirubin 0.6 0.2-1.0 mg/dL Aspartate Amino Transferase (AST) 11 L 13-40 U/L Alanine Aminotransferase (ALT) < 9 7-40 U/L Alkaline Phosphatase 84 46-116 U/L Total Protein 4.2 L 5.7-8.2 g/dL Albumin 2.4 L 3.2-4.8 g/dL Stool Occult Blood Negative Negative Stool Occult Blood Sample #3 Negative Troponin I High Sensitivity 25 </=54 ng/L Urine Color Dark-brown Yellow Urine Clarity Ex.turbid Clear Urine pH 5.5 5.0-9.0 Urine Specific [place] 1.011 1.001-1.035 Urine Protein 1+ H Negative Urine Ketones Negative Negative Urine Blood 3+ H Negative /uL Urine Nitrite Negative Negative Urine Bilirubin Negative Negative Urine Urobilinogen Normal Negative mg/dL Urine Leukocyte Esterase 3+ Negative /uL Urine RBC 84 0 - 3 /hpf Urine WBC Clumps Present None Seen /hpf Urine Microscopic WBC 1472 H 0-3 /HPF Urine Squamous Epithelial Cells Few <5 /hpf Urine Bacteria Many H None Seen /hpf Urine Glucose Normal Normal mg/dL Urine Opiates Screen Pos NEGATIVE Urine Fentanyl Screen Neg NEGATIVE Urine Barbiturates Screen Neg NEGATIVE Urine Phencyclidine Screen Neg NEGATIVE Urine Amphetamines Screen Neg NEGATIVE Urine Benzodiazepines Screen Neg NEGATIVE Urine Cocaine Screen Neg NEGATIVE Urine Cannabinoids Screen Neg NEGATIVE Test 05/15/25 00:11 05/14/25 22:35 05/14/25 22:22 Range/Units Lactic Acid Level 1.9 0.4-2.0 mmol/L Prothrombin Time 16.2 H 9.3-11.8 sec Prothrombin Time INR 1.60 H 0.9-1.15 Magnesium Level 1.9 1.6-2.6 mg/dL B-Type Natriuretic Peptide 91.45 0-100 pg/mL Lipase 16 12-53 U/L Thyroid Stimulating Hormone (TSH) 1.83 0.55-4.78 uIU/mL Plasma/Serum Blood Alcohol < 3.0 <10 mg/dL Blood Gas Specimen Type Arterial Blood Gas Sample Site Left radial Blood Gas Patient Temperature 37.0 Arterial Blood Date Drawn [id number] Arterial Blood pH 7.360 7.350-7.450 Arterial Blood Partial Pressure CO2 23.5 L 35.0-48.0 mmHg Arterial Blood Partial Pressure O2 375.9 *H 83.0-108.0 mmHg Arterial Blood HCO3 13.0 L 21.0-28.0 mmol/L Arterial Blood Oxygen Saturation 99.7 H 94.0-98.0 % Arterial Blood Base Excess -10.9 L -2.0-3.0 mmol/L Arterial Blood Oxyhemoglobin 99.1 H 94.0-98.0 % Arterial Blood Carboxyhemoglobin 0.1 L 0.5-1.5 % Arterial Blood Methemoglobin 0.5 0.0-1.5 % Jackson Test Modified Blood Gas Total Hemoglobin 10.10 L 13.5-17.5 g/dL Blood Gas Liter Flow 15.00 Blood Gas Modality Mask - nrb FiO2 % 100.0 Blood Gas Critical Value Read Back Yes Blood Gas Notified Whom brooks Osman md Blood Gas Notified Time [id number] Blood Gas Notified By meli Holt rrt Assessment Discussed with family regarding code status and what it entails. Patient's family wants to keep the patient comfortable, does understand that his blood pressure is low and still wants to continue with pain management with comfort measures. [id number] Advanced care planning discussed Plan discussed with: Daughter, Other (Grandson) Date of Service: May 15, 2025 Billing Provider: DANIELLE HUTSON Common Visit Codes: [id number] INP/OBS CARE (HIGH) Secondary Visit Codes: [id number] CARE PLAN 30 MINUTES DANIELLE HUTSON May 15, 2025 09:28
[2025-05-15] MEDS: PANTOPRAZOLE 40 MG/10 ML VIAL INJ IV SCH (10:00)
[2025-05-15] MEDS: MORPHINE SULFATE INJ 2 MG/ml SYRG IV PRN (13:02)
--- NOTE | 2025-05-15 16:29 | DVHPN2 ---
Subjective Patient is alert awake but poorly responsive with slowness in his speech. Per nurse he is intermittently confused. Patient's blood pressure systolic in the 80s. Family made him full DNR/DNI. Do not want any aggressive care. No pressors. Patient apparently is on hospice and want him to go back to his boarding care on hospice. He is receiving antibiotics for possible sepsis. Changes from previous H/P or p: No Changes Objective Vitals Vital Signs Date Time Temp Pulse Resp B/P (MAP) Pulse Ox O2 Delivery O2 Flow Rate FiO2 05/15/25 16:00 113 05/15/25 16:00 18 77/47 (57) 99 05/15/25 12:00 97.8 97.8 05/15/25 08:00 Nasal Cannula* 3 32 Intake/Output Intake and Output 05/15/25 07:00 Intake Total 4250 ml Output Total 1550 ml Balance 2700 ml Intake Oral 0 ml IV Total 4250 ml Tube Feeding 0 ml Blood Product 0 ml Other 0 ml Output Urine Total 1500 ml Stool Total 50 ml Urine/Stool Mix 0 ml Gastric Drainage Total 0 ml Emesis 0 ml Chest Tube Drainage Total 0 ml Drainage Total 0 ml Blood Draw 0 ml Other 0 ml # Bowel Movements 2 Exam Elderly frail cachectic appearing gentleman lying in bed. Alert and awake knows his name but otherwise unable to talk much. Appears very weak. HEENT pupils equal round react to light. Dry oral mucosa. Neck supple. No elevated JVD. Heart regular rate and rhythm S1 plus S2. Lungs fair air movement with poor inspiratory effort. No wheezing noted. Abdomen soft positive bowel sounds. Extremities no significant edema noted. Medications Current Medications Medications Dose Ordered Sig/Willem Route Start Time Stop Time Status Last Admin Dose Admin Vancomycin HCl 0 ml @ 0 mls/hr UD IV 05/15/25 00:30 Piperacillin Sod/ Tazobactam Sod 100 ml @ 25 mls/hr Q8HR IV 05/15/25 06:00 05/15/25 13:39 25 MLS/HR Pantoprazole Sodium 40 mg BID IV 05/15/25 10:00 05/15/25 10:00 40 MG Ondansetron HCl 4 mg Q4HP PRN IV 05/15/25 00:30 Acetaminophen 650 mg Q6HP PRN PO 05/15/25 00:30 Nitroglycerin 0.4 mg Q5MINP PRN SL 05/15/25 00:30 Morphine Sulfate 2 mg Q30M PRN IV 05/15/25 00:30 Morphine Sulfate 1 mg Q4HP PRN IV 05/15/25 09:30 05/15/25 13:02 1 MG Laboratory Results Laboratory Tests 05/15/25 05:45 Chemistry Test 05/14/25 22:35 05/15/25 05:45 Albumin 2.0 g/dL (3.2-4.8) L 2.4 g/dL (3.2-4.8) L Calcium Level 7.6 mg/dL (8.7-10.4) L 8.1 mg/dL (8.7-10.4) L Magnesium Level 1.9 mg/dL (1.6-2.6) Total Protein 4.1 g/dL (5.7-8.2) L 4.2 g/dL (5.7-8.2) L Coagulation Test 05/14/25 22:35 Prothrombin Time 16.2 sec (9.3-11.8) H Prothrombin Time INR 1.60 (0.9-1.15) H Lipid panel Test 05/14/25 22:35 Lipase 16 U/L (12-53) Cardiac Markers Test 05/14/25 22:35 B-Type Natriuretic Peptide 91.45 pg/mL (0-100) LFT Test 05/14/25 22:35 05/15/25 05:45 Alanine Aminotransferase (ALT) < 9 U/L (7-40) < 9 U/L (7-40) Alkaline Phosphatase 105 U/L (46-116) 84 U/L (46-116) Aspartate Amino Transferase (AST) 10 U/L (13-40) L 11 U/L (13-40) L Total Bilirubin 0.3 mg/dL (0.2-1.0) 0.6 mg/dL (0.2-1.0) HgA1c, TSH Test 05/14/25 22:35 Thyroid Stimulating Hormone (TSH) 1.83 uIU/mL (0.55-4.78) Urinalysis Test 05/15/25 01:00 Urine Color Dark-brown (Yellow) Urine Clarity Ex.turbid (Clear) Urine pH 5.5 (5.0-9.0) Urine Specific [place] 1.011 (1.001-1.035) Urine Protein 1+ (Negative) H Urine Ketones Negative (Negative) Urine Blood 3+ /uL (Negative) H Urine Nitrite Negative (Negative) Urine Bilirubin Negative (Negative) Urine Urobilinogen Normal mg/dL (Negative) Urine Leukocyte Esterase 3+ /uL (Negative) Urine RBC 84 /hpf (0 - 3) Urine WBC Clumps Present /hpf (None Seen) Urine Microscopic WBC 1472 /HPF (0-3) H Urine Squamous Epithelial Cells Few /hpf (<5) Urine Bacteria Many /hpf (None Seen) H Urine Glucose Normal mg/dL (Normal) Blood Gas Results Test 05/14/25 22:22 Arterial Blood pH 7.360 (7.350-7.450) FiO2 % 100.0 Assessment/Plan Assessment/Plan Continue Zosyn. I will DC vancomycin given the no aggressive care is being pursued. No pressors for low blood pressure. Therefore I will start him on IV fluids overnight. Continue empiric antibiotics. Social Service consultation to talked to patient's hospice and discharge him back to his boarding care tomorrow on hospice. This is what apparently family is requesting per nurse who is at bedside. Unable to talk to any family given they are not available in the hospital at this time. Given patient is comfort care on downgrade him to telemetry floor. Plan discussed with: Patient, Other My Orders Orders - CARMEN SEBASTIAN MD Procedure Category Date Status Time Transfer Orders XFER 05/15/25 Transmitted 15:07 Problem List: (1) Hypotension (2) Sepsis (3) Altered mental status (4) Pneumonia (5) Generalized weakness (6) UTI (urinary tract infection) Date of Service: May 15, 2025 Billing Provider: CARMEN SEBASTIAN MD Common Visit Codes: [id number] INP/OBS CARE(MOD) CARMEN SEBASTIAN MD May 15, 2025 16:29
[2025-05-15] MEDS: D5W/SOD CHLO 0.9% 1,000 ML IV SCH (16:30)
[2025-05-15 20:30] LABS: COVID19 ANTIGEN SOFIA FIA NEGATIVE (NEGATIVE)
[2025-05-16] VITALS (7 sets, daily range): BP systolic 53–73; BP diastolic 32–43; PULSE 55–121; RESP 16–20; TEMP 96.4–97.2; O2SAT 88–100
[2025-05-16] MEDS: MORPHINE SULFATE INJ 2 MG/ml SYRG IV PRN (05:11)
[2025-05-16] MEDS: LORazepam 2MG/ML-1ML VIAL IV PRN (09:54)
--- NOTE | 2025-05-16 12:47 | DVHDS2 ---
Discharge Summary Date of Admission May 15, 2025 at 00:26 Date of Discharge: May 16, 2025 Labs/Diagnostic Data: Laboratory Results Test 05/15/25 19:50 05/15/25 05:45 05/15/25 04:30 05/15/25 01:37 Influenza Type A Antigen Negative (Negative) Influenza Type B Antigen Negative (Negative) SARS-CoV-2 Antigen (Rapid) Negative (NEGATIVE) White Blood Count 23.8 10^3/uL (4.4-10.8) Red Blood Count 2.82 10^6/uL (4.5-5.90) Hemoglobin 8.5 g/dL (13.5-17.5) Hematocrit 25.3 % (41.0-53.0) Mean Corpuscular Volume 89.7 fL (80.0-100.0) Mean Corpuscular Hemoglobin 30.0 pg (28.0-32.0) Mean Corpuscular Hemoglobin Concent 33.5 g/dL (32.0-36.0) Red Cell Distribution Width 16.4 % (11.8-14.3) Platelet Count 69 10^3/uL (140-450) Mean Platelet Volume 6.6 fL (6.9-10.8) Neutrophils (%) (Auto) 93.9 % (37.0-80.0) Lymphocytes (%) (Auto) 3.6 % (10.0-50.0) Monocytes (%) (Auto) 2.4 % (0.0-12.0) Eosinophils (%) (Auto) 0.0 % (0.0-7.0) Basophils (%) (Auto) 0.1 % (0.0-2.0) Neutrophils # (Auto) 22.4 10 ^3/uL (1.6-8.6) Lymphocytes # (Auto) 0.9 10 ^3/uL (0.4-5.4) Monocytes # (Auto) 0.6 10 ^3/uL (0-1.3) Eosinophils # (Auto) 0 10 ^3/uL (0-0.8) Basophils # (Auto) 0 10 ^3/uL (0-0.2) Differential Total Cells Counted 100.0 (100) Neutrophils % (Manual) 88 (37.0-80.0) Band Neutrophils % (Manual) 5 Lymphocytes % (Manual) 4 (10.0-50.0) Monocytes % (Manual) 3 (0-12) Eosinophils % (Manual) 0 (0-7) Basophils % (Manual) 0 (0.0-2.0) Metamyelocytes % (manual) 0 Myelocytes % (Manual) 0 Promyelocytes % (Manual) 0 Blast Cells % (Manual) 0 Nucleated Red Blood Cells 0.0 % Reactive Lymphocytes 0 Platelet Estimate Decreased Anisocytosis (manual) Slight Sodium Level 141 mmol/L (136-145) Potassium Level 3.4 mmol/L (3.5-5.1) Chloride Level 110 mmol/L (98-107) Carbon Dioxide Level 18 mmol/L (20-31) Anion Gap 13 (5-15) Blood Urea Nitrogen 67 mg/dL (9-23) Creatinine 2.07 mg/dL (0.700-1.30) Glomerular Filtration Rate Calc 31 mL/min (>90) BUN/Creatinine Ratio 32.4 (10.0-20.0) Serum Glucose 160 mg/dL (74-106) Calcium Level 8.1 mg/dL (8.7-10.4) Total Bilirubin 0.6 mg/dL (0.2-1.0) Aspartate Amino Transferase (AST) 11 U/L (13-40) Alanine Aminotransferase (ALT) < 9 U/L (7-40) Alkaline Phosphatase 84 U/L (46-116) Total Protein 4.2 g/dL (5.7-8.2) Albumin 2.4 g/dL (3.2-4.8) Random Vancomycin Level 17.1 ug/mL (5-10) Stool Occult Blood Negative (Negative) Stool Occult Blood Sample #3 (Negative) Troponin I High Sensitivity 25 ng/L (</=54) Test 05/15/25 01:00 05/15/25 00:11 05/14/25 22:35 05/14/25 22:22 Urine Color Dark-brown (Yellow) Urine Clarity Ex.turbid (Clear) Urine pH 5.5 (5.0-9.0) Urine Specific [place] 1.011 (1.001-1.035) Urine Protein 1+ (Negative) Urine Ketones Negative (Negative) Urine Blood 3+ /uL (Negative) Urine Nitrite Negative (Negative) Urine Bilirubin Negative (Negative) Urine Urobilinogen Normal mg/dL (Negative) Urine Leukocyte Esterase 3+ /uL (Negative) Urine RBC 84 /hpf (0 - 3) Urine WBC Clumps Present /hpf (None Seen) Urine Microscopic WBC 1472 /HPF (0-3) Urine Squamous Epithelial Cells Few /hpf (<5) Urine Bacteria Many /hpf (None Seen) Urine Glucose Normal mg/dL (Normal) Urine Opiates Screen Pos (NEGATIVE) Urine Fentanyl Screen Neg (NEGATIVE) Urine Barbiturates Screen Neg (NEGATIVE) Urine Phencyclidine Screen Neg (NEGATIVE) Urine Amphetamines Screen Neg (NEGATIVE) Urine Benzodiazepines Screen Neg (NEGATIVE) Urine Cocaine Screen Neg (NEGATIVE) Urine Cannabinoids Screen Neg (NEGATIVE) Lactic Acid Level 1.9 mmol/L (0.4-2.0) Prothrombin Time 16.2 sec (9.3-11.8) Prothrombin Time INR 1.60 (0.9-1.15) Magnesium Level 1.9 mg/dL (1.6-2.6) B-Type Natriuretic Peptide 91.45 pg/mL (0-100) Lipase 16 U/L (12-53) Thyroid Stimulating Hormone (TSH) 1.83 uIU/mL (0.55-4.78) Plasma/Serum Blood Alcohol < 3.0 mg/dL (<10) Blood Gas Specimen Type Arterial Blood Gas Sample Site Left radial Blood Gas Patient Temperature 37.0 Arterial Blood Date Drawn [id number] Arterial Blood pH 7.360 (7.350-7.450) Arterial Blood Partial Pressure CO2 23.5 mmHg (35.0-48.0) Arterial Blood Partial Pressure O2 375.9 mmHg (83.0-108.0) Arterial Blood HCO3 13.0 mmol/L (21.0-28.0) Arterial Blood Oxygen Saturation 99.7 % (94.0-98.0) Arterial Blood Base Excess -10.9 mmol/L (-2.0-3.0) Arterial Blood Oxyhemoglobin 99.1 % (94.0-98.0) Arterial Blood Carboxyhemoglobin 0.1 % (0.5-1.5) Arterial Blood Methemoglobin 0.5 % (0.0-1.5) Jackson Test Modified Blood Gas Total Hemoglobin 10.10 g/dL (13.5-17.5) Blood Gas Liter Flow 15.00 Blood Gas Modality Mask - nrb FiO2 % 100.0 Blood Gas Critical Value Read Back Yes Blood Gas Notified Whom brooks Osman md Blood Gas Notified Time [id number] Blood Gas Notified By meli Holt rrt Other Laboratory Tests 05/15/25 05:45 Brief Hx & Hospital Course: 84-year-old male presents for evaluation of coffee-ground emesis. Patient resides at a board and care facility where he had a coffee-ground emesis episode. Patient is currently lethargic and not answering questions. Patient was noted to be hypotensive in the 50s and hypoxic on arrival. Spoke to family Yashira daughter and grandson Rick at the bedside stated that they want to continue with the DNR DNI status. Family does not want any aggressive measures. States that they do not want any vasopressors and just wants the patient comfortable. Understands that the patient is dying and prognosis is poor. Family is requesting for pain medications for the patient's pain due to the sacral wound. Patient is awake but not alert and oriented. Did explain fully with DNR DNI status is and patient's family still wants to continue with it. He is admitted and supportive care received with IV fluids. His blood pressure did not improve. He has been in bed-bound and mentation is also did not improve. Unable to swallow or take anything by mouth. Patient is comfort care has on hospice services. Therefore hospice is reconsulted and he is being discharged back to his [facility] with hospice. I have talked with the daughters at bedside along with the nurse at bedside regarding his overall poor prognosis and limited life expectancy limited to few weeks to few months given the no oral intake and low blood pressure from sepsis. They verbalized understanding of this and do not want any aggressive care and wants him to be comfortable and agreed to continue hospice at [facility]. Therefore he is being discharged in guarded condition. Condition at Discharge: Poor Final Diagnosis/Problems List UTI, SEPSIS, ALOC, DEHYDARATION, FAILURE TO THRIVE, BED BOUND STATUS Discharge Disposition: Hospice - Home Discharge Instruct/Medications Diet: See Comment Diet comment: TOLERATED WITH ASPIRATION PRECAUTIONS Activity: Bed rest Follow Up/Referral: HOSPICE TO MANAGE MEDICATIONS/CARE Medications: PER HOSPICE Discontinued Medications: Ciprofloxacin Hcl (Cipro) 500 Mg Tab 1 TAB PO BID, #20 TAB No Active Prescriptions or Reported Meds Discharge Statement: "Patient was advised to return to the ER or call 911 if any headaches, dizziness, shortness of breath, chest pain, abdominal pain, bleeding, fevers, or worsening of medical condition. Patient was counseled about treatment plan, medications, possible side effects, patientverbalized understanding. All questions were answered to the best of my ability. This discharge took greater then 30 minutes in planning, reviewing documentation, counseling the patient, and discussing with other team members." ASSESSMENT ASSESSMENT Assessment UTI, SEPSIS, ALOC, DEHYDARATION, FAILURE TO THRIVE, BED BOUND STATUS Date of Service: May 16, 2025 Billing Provider: CARMEN SEBASTIAN MD Common Visit Codes: 44012-EZJ/OBS DISCH DAY <30MIN CARMEN SEBASTIAN MD May 16, 2025 12:47
== END 2025-05-16 20:15 | disposition hospice, inpatient (51) | DRG 871 ==
LOC: ER 21:45 → EDBD 21:45 → OVERFLOW 05-15 00:26 → TELE-EAST 05-15 00:34
PROVIDERS: ADMIT Hospitalist; ATTEND Hospitalist
PROC: 05HM33Z Insertion of Infusion Device into Right Internal Jugular Vein, Percutaneous Approach (ICD-10-PCS; principal; 2025-05-14)
DX: A41.9 Sepsis, unspecified organism (principal); E43 Unspecified severe protein-calorie malnutrition; G93.41 Metabolic encephalopathy; J15.69 Pneumonia due to other Gram-negative bacteria; J15.9 Unspecified bacterial pneumonia; K92.2 Gastrointestinal hemorrhage, unspecified; R64 Cachexia; N39.0 Urinary tract infection, site not specified; N17.9 Acute kidney failure, unspecified; Z66 Do not resuscitate; Z20.822 Contact with and (suspected) exposure to COVID-19; R62.7 Adult failure to thrive; Z51.5 Encounter for palliative care; I10 Essential (primary) hypertension; E11.9 Type 2 diabetes mellitus without complications; D64.9 Anemia, unspecified; F03.90 Unspecified dementia, unspecified severity, without behavioral disturbance, psychotic disturbance, mood disturbance, and anxiety; R09.02 Hypoxemia; E78.5 Hyperlipidemia, unspecified; Z68.21 Body mass index [BMI] 21.0-21.9, adult; Z74.01 Bed confinement status
CPT/HCPCS: 36415; 36556; 36600; 70450; 71045; 74176; 80053; 80202; 80307; 80320; 81001; 82270; 82805; 83605; 83690; 83735; 83880; 84443; 84484; 85007; 85025; 85027; 85610; 86850; 86900; 86901; 87040; 87086; 87088; 87186; 87426; 87804; 93005; 96360; 99291; G0378; J2470; J2543; J3480; P9047